=== PATIENT | female | born 1965 | race Caucasian/White ===

== ENCOUNTER 2022-03-25 16:26 | Inpatient (IN) | payer OTHER ==
[~2022-03-25] VITALS: Ht 167.6 cm; Wt 67.7 kg
[~2022-03-25 16:26] MED LIST: AMLO10 PO; ERGO50000 PO; ESCI10 PO; MARIJUANA; OMEPRAZOLE20 MG PO; ONDA4ODT MM; PRAV20 PO
[2022-03-25 17:16] LABS: BASOPHILS ABSOLUTE AUTO 0.06 K/mm3 (0.00-0.23); BASOPHILS PERCENT AUTO 1 % (0-2); EOSINOPHILS ABSOLUTE AUTO 0.09 K/mm3 (0.00-0.68); EOSINOPHILS PERCENT AUTO 1 % (0-6); Hematocrit 26.2 % (33.0-51.0); Hemoglobin 6.7 g/dL (11.5-16.0); IMMATURE GRAN ABSOLUTE AUTO 0.03 K/mm3 (0.00-0.10); IMMATURE GRAN PERCENT AUTO 0 % (0-1); LYMPHOCYTES ABSOLUTE AUTO 2.47 K/mm3 (0.84-5.20); LYMPHOCYTES PERCENT AUTO 22 % (21-46); MONOCYTES ABSOLUTE AUTO 0.73 K/mm3 (0.16-1.47); MONOCYTES PERCENT AUTO 6 % (4-13); Mean Corpuscular HGB 14.6 pg (26.0-34.0); Mean Corpuscular HGB Conc 25.6 g/dL (31.5-36.5); Mean Corpuscular Volume 57 fL (80-100); Mean Platelet Volume 9.7 fL (9.1-12.4); NEUTROPHILS PERCENT AUTO 71 % (41-73); Platelet Count 545 K/mm3 (150-400); RDW Coefficient Variation 20.5 % (11.7-14.2); RDW Standard Deviation 39.2 fL (35.1-46.3); Red Blood Cell Count 4.59 M/mm3 (3.80-5.20); White Blood Cell Count 11.48 K/mm3 (4.00-11.30)
[2022-03-25 17:45] LABS: Influenza A, PCR NEGATIVE (NEGATIVE); Influenza B, PCR NEGATIVE (NEGATIVE); Resp Syncytial Virus, PCR NEGATIVE (NEGATIVE); SARS-Cov-2 (COVID-19) PCR, MMC NEGATIVE (NEGATIVE)
[2022-03-25 17:54] LABS: Albumin, Blood 4.4 g/dL (3.4-5.0); Albumin/Globulin Ratio 1.1 (0.8-1.8); Bilirubin, Total 0.3 mg/dL (0.1-1.0); Bun/Creatinine Ratio 24.3 (12.0-20.0); Calcium, Blood 9.9 mg/dL (8.5-10.1); Creatinine, Blood 0.66 mg/dL (0.40-1.00); Globulin, Blood 4.1 g/dL (2.2-4.0); Potassium, Blood 3.7 mmol/L (3.5-5.5); Total Protein, Blood 8.5 g/dL (6.4-8.2)
[2022-03-26 00:07] LABS: IMMATURE RETIC FRACTION 35.1 % (2.3-16.0); RETICULOCYTE ABSOLUTE 0.1033 M/mm3 (0.0200-0.1100); RETICULOCYTE COUNT PERCENT 2.31 % (0.50-2.50)
[2022-03-26 00:14] LABS: Percent Saturation 2.3 % (15.0-50.0)
[2022-03-26 00:30] LABS: International Normalized Ratio 1.13; Prothrombin Time Results 11.8 Sec (9.7-11.5)
--- NOTE | 2022-03-26 02:33 | NUR ---
NEW ADMIT FROM QUALITY TECHNICIAN FIBERGLASS: NEW PT ADMIT TO ICU 5 FROM THE QUALITY TECHNICIAN FIBERGLASS. PT ARRIVED TO THE UNIT AT 2251 POST PCI; PT HAD ONE STENT PLACED IN THE PROX LAD WITH A R. RADIAL ACCESS SITE. UPON PT ARRIVAL PT HAD A 2/3 COMPLAINT OF CHEST PAIN THAT WAS RADIATING DOWN LEFT ARM, BUT PAIN HAS BEEN RESOLVING. R. RADIAL SITE ASSESSED WITH LEONIDES QUALITY TECHNICIAN FIBERGLASS RN AT BEDSIDE UPON PT ARRIVAL; SITE LOOKS GOOD WITH NO SIGNS OF BLEEDING OR FORMATION OF HEMATOMA. PT HAS C/O N/V AND SHE STATES THAT THIS IS A CHRONIC ISSUE. PT HAS BEEN VOMTING SINCE ARRIVAL AND HAS RECIEVED ZOFRAN AND COMPAZINE AND HAS HAD NO POSITIVE EFFECT AT THIS TIME. PT A&O X 4, AND APPEARS TIRED. PT ON 2 L VIA NC UPON ARRIVAL, PT NOW ON 6 L HUMIDIFIED O2 VIA NC; PT SPO2 96< AND RR 18-22. PT HAS COUGHING FITS ASSOCIATED WITH N/V EPISODES. BLOOD TINGED SPIT/VOMIT IN EMESIS BAG. PT STATES THAT SHE WEARS A CPAP AT NIGHT FOR HER SLEEP APNEA. PT HAS HYPERACTIVE BS IN ALL FOUR QUADRANTS. PT USING PUREWICK TO VOID. 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 FAMILY AT BEDSIDE AFTER PT SETTLED IN ROOM AND UPDATED ON PT STATUS AND ALL QUESTIONS ANSWERED AT THIS TIME. PT RECIEVING UNIT OF PRBC AT THIS TIME. BED LOWERED, CALL LIGHT IN REACH, WILL CONTINUE TO MONITOR CLOSELY.
[2022-03-26 04:42] LABS: PCO2 Arterial 43.5 mmHg (35-45); pH Blood Arterial 7.31 (7.35-7.45)
[2022-03-26 04:43] LABS: PO2 Arterial 43.4 mmHg (80-100)
[2022-03-26 05:05] LABS: Hematocrit 31.2 % (33.0-51.0); Hemoglobin 8.3 g/dL (11.5-16.0)
[2022-03-26 05:26] LABS: Source, Urine Foley catheter
[2022-03-26 05:40] LABS: Anion Gap 11 mmol/L (6-16); Blood Urea Nitrogen 15 mg/dL (8-24); Bun/Creatinine Ratio 25.2 (12.0-20.0); CHOL/HDL RATIO 4.4; CO2, Blood 21 mmol/L (21-32); Chloride, Blood 109 mmol/L (98-108); Cholesterol 266 mg/dL (50-200); Glomerular Filtration Rate 105 (60-); Glucose, Blood 205 mg/dL (70-99); HDL Cholesterol 60 mg/dL (>39); LDL/HDL RATIO 2.8; Low Density Lipoprotein Chol 170 mg/dL (0-110); Magnesium, Blood 2.1 mg/dL (1.6-2.4); Potassium, Blood 3.6 mmol/L (3.5-5.5); Sodium, Blood 141 mmol/L (136-145); Triglycerides 178 mg/dL (30-160); Very Low Density Lipoprot Chol 35 mg/dL (6-32)
[2022-03-26 06:04] LABS: Bilirubin, Urine Neg (Neg); Blood, Urine 3+ (Neg); Glucose Qualitative, Urine Neg (Neg); Ketones, Urine 1+ (Neg); Leukocyte Esterase, Urine Neg (Neg); Nitrite, Urine Neg (Neg); Protein, Urine 3+ (Neg); Specific Gravity, Urine 1.015 (1.003-1.022); Urobilinogen, Urine NORM (Normal)
[2022-03-26 06:20] LABS: Appearance, Urine Clear (Clear); Color, Urine Yellow (P-Yellow)
[2022-03-26 06:22] LABS: Bacteria Rare /hpf; Red Blood Cells, Urine 0-2 /hpf (0-2); Squamous Epithelial Cells Rare /hpf (Few); White Blood Cells, Urine 0-2 /hpf (0-5)
[2022-03-26 07:28] LABS: U Amphetamine Screen Not Detected; U Barbituate Screen Not Detected; U Benzodiazapine Screen Not Detected; U Buprenorphine Screen Not Detected; U Cannabinoids Screen DETECTED; U Cocaine Screen Not Detected; U Methadone Screen Not Detected; U Methamphetamine Screen Not Detected; U Opiates Screen DETECTED; U Oxycodone Screen Not Detected; U Phencyclidine Screen Not Detected; U Propoxyphene Screen Not Detected
--- NOTE | 2022-03-26 07:34 | NUR ---
PT UPDATE/SHIFT SUMMARY: PT BEGAN TO HAVE ANXIETY AND RESPIRATORY DISTRESS AROUND 0315. PT BEGAN TO HYPERVENTILATE AND PULL OFF CPAP AND HIGH FLOW NASAL CANNULA. THIS RN ATTEMPTED TO CALM PT DOWN AND CLINICAL RESEARCH ADMINISTRATOR WITH DEEP BREATHING; THESE INTERVENTIONS WERE EFFECTIVE FOR A SHORT PERIOD OF TIME BEFORE THE PT BEGAN TO BECOME INCREASINGLY ANXIOUS/AGGITATED. AT THIS TIME, THE PT'S SPO2 CONTINUOUSLY DROPPED FROM THE 80'S DOWN TO THE 70'S AND THE PT WAS STRUGGLING WITH RECOVERING O2 LEVELS. AT THIS TIME, AYALA AT BEDSIDE TO ASSESS PT AFTER CALLING PROVIDER WITH UPDATE ON PT'S URGENT STATUS. EKG OBTAINED AT THIS TIME AND ABG COLLECTED. PT O2 LEVELS CONTINUED TO DROP THE PT CONTINUED TO BE ANXIOUS/AGGITATED. SPO2 DROPPED DOWN INTO THE 60'S. RESULTS FOR PAO2 IN THE 40'S CAME BACK AND PROVIDER ORDERED FOR BEDSIDE INTUBATION. DR YOON CALLED FOR INTUBATION. PT MEDICATED WITH 20 MG ETOMIDATE GIVEN @ 0505, 80 MG ROCURONIUM GIVEN @ 0506, AND 7.5 ETT 24 CM @ TEETH PLACED AT 0506. VENT SETTINGS AC/VC 15/420/10/80%. LUNGS ARE CLEAR, SPO2 98<, RR 18-22. PT CURRENTLY HAS PROPOGOL GTT @ 30 MCG, NITRO GTT 5 MCG. HR IN THE 110'S, SBP 120-130'S. OGT PLACED AND HOOKED ON LIS. FORMAN PLACED AND DRAINING TO GRAVITY; URINE CLEAR, LIGHT YELLOW. PT IN SOFT, BILAT. WRIST RESTRAINTS. PT'S CALLED AFTER INTUBATION AND CAME IN AND UPDATED BY DR MELLO AT BEDSIDE, ALL QUESTIONS ANSWERED AT THIS TIME. BEDSIDE REPORT GIVEN TO EDNA WARNER.
--- NOTE | 2022-03-26 09:06 | NUR ---
ASSUMED CARE BEDSIDE REPORT FROM HANK WARNER AT 0700. PT INTUBATED AND SEDATED. VENT SETTINGS AC/VC 15/420/10/70%. LUNGS CLEAR, DIM IN BASES. GAG/SWALLOW REFLEX. PINK FROTHY SPUTUM FROM ETT. PROPOFOL FOR SEDATION. RESPONSIVE TO PAINFUL STIMULI. DOES NOT FOLLOW DIRECTIONS. ST ON MONITOR, NITRO STARTED AT SHIFT CHANGE, ON STANDBY AT THIS TIME. BP STABLE. MEDS GIVEN DOWN OGT, CLAMPED. ABD ROUND, SOFT, NON TENDER. BT X 4. CVC TO RIJ, DRESSING C/D/I. FORMAN PATENT, DRAINING CLEAR YELLOW URINE TO GRAVITY. RIGHT RADIAL ACCESS SITE WNL. SO AT BEDSIDE. DR PAK ROUNDED, EKG DONE, SHOWN TO MD. MEDS ADJUSTED. WILL CONTINUE TO MONITOR.
--- NOTE | 2022-03-26 17:53 | NUR ---
SHIFT SUMMARY PT REMAINS INTUBATED AND SEDATED. VENT SETTINGS AC/VC 15/420/10/50%. LUNGS CLEAR. PINK FROTHY SPUTUM FROM ETT. ST ON MONITOR, RATE 100-110'S. BP STABLE. PT GOES FROM SOMULENT TO SITTING UP IN BED, KICKING LEGS. SEDATED c VERSED GTT AND FENTANYL AND ATIVAN PRN. PROPOFOL D/C'D D/T POTENTIAL TO DECREASE CO. TUBE FEEDS STARTED VIA OGT, INFUSING AT 25 ML/HR. FORMAN PATENT, DRAINED 700 ML CLEAR YELLOW URINE TO GRAVITY. CVC TO RIJ. RIGHT RADIAL SITE WNL. WILL CONTINUE TO MONITOR UNTIL REPORT TO ONCOMING NURSE.
--- NOTE | 2022-03-26 23:07 | NUR ---
ASSUMED CARE AT 1900 PT LAYING IN BED INTUBATED WITH VENT SETTINGS AC/VC 15/420/10/40%; SMALL AMOUNT OF ETT SECREATIONS NOTED. PT REACTIVE TO PAINFUL STIMULI AND PERSONAL CARE; SHE DOES NOT FOLLOW DIRECTIONS AND QUICKLY GOES FROM SOMNULENT TO AGITATED AND PULLING AT RESTRAINTS ALONG WITH KICKING LEGS; PRN ATIVAN AND FENTANYL AVAILABLE AND HELPS WITH AGITATION; VERSED INFUSING AT 10MG/HR. AFEBRILE. HR 110-115. SBP 100-110; MAP >65. PIVOT INFUSING AT 25ML/HR WITH 30ML FLUSHES Q4HR; GOAL 40ML/HR. RT RADIAL SITE FROM PREVIOUS TR BAND SHOWS NO SIGNS OF BLEEDING OR HEMATOMA. CENTRAL LINE TO RT IJ DRESSING C/D/I. SEE SHIFT ASSESSMENT FOR FULL ASSESSMENT.
--- NOTE | 2022-03-26 23:32 | NUR ---
UPDATE PIVOT INCREASED TO 40ML/HR AT 2250. THIS IS GOAL RATE.
--- NOTE | 2022-03-27 00:17 | NUR ---
UPDATE PT BECOMES AGITATED VERY EASILY AND IS NOT REDIRECTABLE. SHE WILL OPEN HER EYES AND MAKE EYE CONTACT BUT DOES NOT FOLLOW DIRECTIONS. VERSED CONT TO INFUSE AT 10MG/HR. SEVERAL FENTANYL PUSHES GIVEN SINCE BEGINING OF SHIFT. CALL MADE TO DR YBARRA REGARDING SEDATION. NEW ORDERS PROVIDED TO START FENTANYL PUNCHBOARD FILLING MACHINE OPERATOR 25-50MCG/HR.
[2022-03-27 03:45] LABS: PCO2 Arterial 40.3 mmHg (35-45); PO2 Arterial 103 mmHg (80-100); pH Blood Arterial 7.45 (7.35-7.45)
[2022-03-27 04:31] LABS: BASOPHILS ABSOLUTE AUTO 0.06 K/mm3 (0.00-0.23); BASOPHILS PERCENT AUTO 0 % (0-2); EOSINOPHILS ABSOLUTE AUTO 0.06 K/mm3 (0.00-0.68); EOSINOPHILS PERCENT AUTO 0 % (0-6); Hematocrit 24.5 % (33.0-51.0); Hemoglobin 6.5 g/dL (11.5-16.0); IMMATURE GRAN PERCENT AUTO 1 % (0-1); LYMPHOCYTES ABSOLUTE AUTO 2.02 K/mm3 (0.84-5.20); LYMPHOCYTES PERCENT AUTO 12 % (21-46); MONOCYTES ABSOLUTE AUTO 1.35 K/mm3 (0.16-1.47); MONOCYTES PERCENT AUTO 8 % (4-13); Mean Corpuscular HGB 16.2 pg (26.0-34.0); Mean Corpuscular HGB Conc 26.5 g/dL (31.5-36.5); Mean Corpuscular Volume 61 fL (80-100); NEUTROPHILS ABSOLUTE AUTO 13.89 K/mm3 (1.96-9.15); NEUTROPHILS PERCENT AUTO 80 % (41-73); NRBC ABSOLUTE 0.03 K/mm3 (0.00-0.02); NRBC Auto 0.2 /100 WBC (0.0-0.2); Platelet Count 410 K/mm3 (150-400); RDW Coefficient Variation 23.9 % (11.7-14.2); RDW Standard Deviation 45.8 fL (35.1-46.3); Red Blood Cell Count 4.02 M/mm3 (3.80-5.20); White Blood Cell Count 17.48 K/mm3 (4.00-11.30)
[2022-03-27 04:47] LABS: Mean Platelet Volume 9.7 fL (9.1-12.4)
[2022-03-27 04:51] LABS: Albumin, Blood 3.2 g/dL (3.4-5.0); Albumin/Globulin Ratio 0.9 (0.8-1.8); Bilirubin, Total 0.6 mg/dL (0.1-1.0); Bun/Creatinine Ratio 32.4 (12.0-20.0); Calcium, Blood 8.8 mg/dL (8.5-10.1); Creatinine, Blood 0.68 mg/dL (0.40-1.00); Globulin, Blood 3.5 g/dL (2.2-4.0); Magnesium, Blood 2.4 mg/dL (1.6-2.4); Phosphorus, Blood 2.3 mg/dL (2.5-4.9); Potassium, Blood 3.2 mmol/L (3.5-5.5); Total Protein, Blood 6.7 g/dL (6.4-8.2)
--- NOTE | 2022-03-27 05:04 | NUR ---
UPDATE CALLED DR YBARRA REGARDING THIS AM LAB RESULTS OF HGB 6.5 AND POTASSIUM 3.2. NEW ORDERS PROVIDED FOR ONE PRBC TO BE INFUSED AND 40MEQ KCL IV.
--- NOTE | 2022-03-27 06:32 | NUR ---
END OF SHIFT SUMMARY PT CONT TO BE INTUBATED WITH VENT SETTINGS AC/VC 15/420/10/30%; INCREASE IN SECREATIONS AND NOW SCHREIBER IN COLOR. PT CONT TO BE EITHER VERY SOMNULENT AND NOT REACTIVE TO VERY RESTLESS, KICKING LEGS, FIGHTING VENT, AND PULLING AT RESTRAINTS; FENTANYL INFUSING AT 50MCG/HR; VERSED INFUSING AT 10MG/HR; SEVERAL FENTANYL AND ATIVAN PUSHES GIVEN TO HELP WITH VENT COMPLIENCE. AFEBRILE. HR 100-120. SBP 80-100; MAP >65. PIVOT INFUSING AT GOAL VIA OG. FORMAN IN PLACE WITH 750ML OUTPUT. RT IJ DRESSING C/D/I. RT RADIAL SITE SHOWS NO SIGNS OF BLEEDING OR HEMATOMA. ONE UNIT OF PRBC INFUSING NOW. KCL INFUSING NOW. WILL REPORT TO AM RN WHEN AVAILABLE.
--- NOTE | 2022-03-27 08:56 | NUR ---
ASSUMED CARE BEDSIDE REPORT FROM GENNARO WARNER AT 0700. PT INTUBATED AND SEDATED. VENT SETTINGS AC/VC 15/420/7/30%. LUNGS DIM, SCANT SCHREIBER SECRETIONS FROM ETT. VERSED AND FENTANYL GTT FOR SEDATION. PT SOMULENT, THEN BECOMES AGITATED, KICKING AND PULLING ON RESTRAINTS. NOT REDIRECTABLE. DOES NOT FOLLOW COMMANDS. MEDICATED c FENTANYL PRN. ST ON MONITOR, RATE 100-110'S. BP STABLE. TUBE FEEDS AT GOAL. FORMAN PATENT, DRAINING CLEAR YELLOW URINE TO GRAVITY. CVC TO RIJ, DRESSING C/D/I. RIGHT RADIAL ACCESS SITE WNL. WILL CONTINUE TO MONITOR.
--- NOTE | 2022-03-27 10:43 | NUR ---
EXTUBATION PT PLACED ON SPONT, INITIALLY 10/5/30%, THEN 7/5/30% FOR 30 MINUTES. SEDATION PUT ON STANDBY. TIDAL VOLUMES 300'S. PT KICKING LEGS, AGITATED. +COUGH/GAG. EXTUBATED AT 1025. SHALLOW RESP. FOLLOWS COMMANDS c MULIPLE REQUESTS. WEAK COUGH. PLACED ON 13L VIA HFNC. DR WRIGHT TO BEDSIDE FOR ASSESSMENT. PLACED ON BIPAP 14/7/65%. TOLERATING WELL.
--- NOTE | 2022-03-27 17:15 | NUR ---
SHIFT SUMMARY PT EXTUBATED THIS SHIFT. SEE PREVIOUS NOTE. CURRENTLY ON 2L VIA HFNC. LUNGS CLEAR. PT'S MENTATION IMPROVING. FOLLOWS SIMPLE COMMANDS. ORIENTED TO PERSON, PLACE. MOOD LABILE. TEARFUL. TWO PERSON ASSIST TO BSC. VOIDED 250 ML POST FORMAN REMOVAL. BP STABLE. HR 100'S, SR. CVC TO RIJ. WILL CONTINUE TO MONITOR UNTIL REPORT TO ONCOMING NURSE.
--- NOTE | 2022-03-27 19:52 | NUR ---
ASSUMED CARE AT 1845 -- PATIENT HAS BEEN AGITATED AND ANXIOUS, TRYING TO ATTEMPT BED EXIT SEVERAL TIMES. SHE TRIED TO USE BEDPAN UNSUCCESSFULY; THEN ASSISTED TO COMMODE WITH SEVERAL COLLEAGUES AND UNABLE TO VOID. AUTHOR ATTEMPTED TO SET EXPECTATIONS FOR THE NIGHT, REORIENTING HER TO CALL LIGHT, AND AGAIN INSTRUCTING HER NOT TO LEAVE HER BED WITHOUT ASSISTANCE. SHE DID NOT DEMONSTRATE ADEQUATE STRENGTH WHEN IT COMES TO WEIGHT-BEARING AND WAS A 2-ASSIST.
--- NOTE | 2022-03-28 01:06 | NUR ---
PATIENT'S PIV IN L AC WENT BAD AND INFILTRATED. AUTHOR ATTEMPTED PLACING ONE IV BUT VEIN BLEW. PATIENT THEN REQUESTS XYLOCAINE, BUT PATIENT HAS EXISTING IJ CENTRAL LINE, NO PIV NECESSARY AT THIS TIME.
[2022-03-28 01:34] LABS: Source, Urine Foley catheter
[2022-03-28 01:35] LABS: Bilirubin, Urine Neg (Neg); Blood, Urine 5+ (Neg); Glucose Qualitative, Urine Neg (Neg); Ketones, Urine Neg (Neg); Leukocyte Esterase, Urine 1+ (Neg); Nitrite, Urine Neg (Neg); Protein, Urine 2+ (Neg); Urobilinogen, Urine 1+ (Normal)
[2022-03-28 01:41] LABS: Appearance, Urine Hazy (Clear); Color, Urine Yellow (P-Yellow); White Blood Cells, Urine 0-2 /hpf (0-5)
[2022-03-28 01:42] LABS: Bacteria Not Seen /hpf; Red Blood Cells, Urine TNTC /hpf (0-2); Squamous Epithelial Cells Not Seen /hpf (Few)
--- NOTE | 2022-03-28 01:57 | NUR ---
PATIENT CONTINUES TO C/O FEELINGS OF URINARY URGENCY AND HAS BEEN REQUESTING TO USE COMMODE Q15MIN. AUTHOR FIRST TRIED SETTING REASONABLE EXPECTATIONS, I.E. GETTING UP HOURLY, AUTHOR HAS ANOTHER PATIENT TO CARE FOR. PATIENT IS A 2-PERSON ASSIST AND BARELY CAN SUPPORT OWN WEIGHT. PATIENT UNABLE TO CLUSTER REQUESTS. FORMAN PLACED WITH URINE RETURN OF APPROX 20-30ML. PATIENT CONTINUES TO REPORT FEELING OF NEEDING TO VOID. AUTHOR EXPLAINED LIKELY NOW DUE TO IRRITATION IN URETHRA FROM FORMAN INSERTION. HOWEVER, TO BE THOROUGH, AUTHOR BLADDER SCANNED PATIENT. MAXIMUM AMOUNT SCANNED 15ML DESPITE MULTIPLE VIEWS, ANGLES. PATIENT SATISFIED.
--- NOTE | 2022-03-28 03:36 | NUR ---
AUTHOR PLACED CALL TO DR. YBARRA RE: PATIENT RESTLESSNESS, ANXIETY, FEELINGS OF POLUURIA AND RETENTION ALONG WITH LOW BACK PAIN. INFORMED MD THAT URINE SENT TO LAB CONTAINED LEUKOCYTE ESTERASE AND ALSO THAT AUTHOR HAD BLADDER SCANNED WITH MINIMAL AMOUNTS SEEN. ADDITIONALLY UPDATED MD THAT WHILE PT UP TO COMMODE FREQUENTLY (PRIOR TO FORMAN INSERTION), SHE IS NOT OUTPUTTING MUCH. SINCE PLACING CATH, ONLY ABOUT 50ML OUT. PER MD, OK TO ORDER 1MG DILAUDID ONE-TIME DOSE, ALONG WITH CHANGING PRN 25-50 MCG FENTANYL FREQUENCY TO Q30MIN. IN ADDITION, VERBAL ORDER FOR NS AT 75ML/HR FOR A TOTAL OF 500ML. MD AWARE OF HX FLASH PULMONARY EDEMA.
[2022-03-28 03:38] LABS: Bun/Creatinine Ratio 30.8 (12.0-20.0); Calcium, Blood 9.1 mg/dL (8.5-10.1); Creatinine, Blood 0.58 mg/dL (0.40-1.00); Potassium, Blood 3.2 mmol/L (3.5-5.5)
--- NOTE | 2022-03-28 04:20 | NUR ---
CALL TO DR YBARRA REGARDING PT CONFUSED. TYRING TO CLIMB OUT OF BED. PULLING ON LINES AND UNABLE TO REORIENT. PT PLACED IN VEST AND SOFT WRIST RESTRAINTS. MED WITH FENTANYL, DILAUDID AND ATIVAN WITHOUT EFFECT. ORDER OBTAINED FOR ZYPREXA IM ONE TIME
--- NOTE | 2022-03-28 04:51 | NUR ---
PLEASE SEE PREVIOUS NOTE FROM CHARGE NURSE. DUE TO PATIENT'S DISORIENTATION AND FREQUENT ATTEMPTS AT EXITING BED, ALONG WITH INEFFECTIVENESS OF PRN MEDICATIONS FOR AGITATION/SEDATION, PATIENT WAS PLACED INTO A FORTUNATO VEST AND SOFT WRIST RESTRAINTS. PATIENT STILL ATTEMPTING TO WRIGGLE OUT OF RESTRAINTS AND ACTIVELY A DANGER TO HERSELF DUE TO MENTAL STATUS. MD CALLED AND ONE-TIME ORDER PLACED FOR ZYPREXA. THIS WAS ADMINISTERED WITH GOOD EFFECT; PATIENT IS CALMER AND INTERMITTENTLY SLEEPING. IVF RESTARTED ONCE ABLE.
--- NOTE | 2022-03-28 05:41 | NUR ---
UPDATE: ZYPREXA NOT EFFECTIVE FOR LONG. PT CONTINUING BEHAVIORS NOTED PREVIOUSLY ALONG WITH BEING INCONSOLABLE AND RAMPING HERSELF UP. HR UP TO 140S AND BP INCREASING WELL. CALL PLACED TO DR. WRIGHT. AUTHOR UPDATED MD ON EVENTS OVERNIGHT. ORDER PLACED FOR PRECEDEX.
--- NOTE | 2022-03-28 06:43 | NUR ---
SHIFT SUMMARY: PLEASE SEE MULTIPLE NOTES THIS SHIFT BY THIS AUTHOR FOR FULL DETAILS NEURO: SEDATED WITH PRECEDEX. PATIENT IS CALMER AND APPEARS TO BE ASLEEP. CARDS: ST MOSTLY. ONCE PRECEDEX ONBOARD, HR 80S-90S, BP WDL. RESP: NOW ON BIPAP 10/; FIO2 30%. LUNGS CLEAR/DIMINISHED. GI/: FORMAN RE-ESTABLISHED. VERY LOW UOP. NO BM. SEE PREVIOUS NOTES. MSK: CANNOT BEAR OWN WEIGHT. 2-ASSIST IF TRANSFERRING. FULL ROM IN ALL EXTREMITIES (NOW IN RESTRAINTS). INTEG: NO SKIN CONCERNS. DRIPS: PRECEDEX AT 1.0 MCG/KG/HR NS AT 75ML/HR FOR A TOTAL OF 500ML.
--- NOTE | 2022-03-28 08:16 | NUR ---
ASSUMED CARE REPORT FROM JOHANA WARNER AT 0700. PT RESTING IN BED. APPEARS TO BE SLEEPING. PRECEDEX GTT INFUSING. TITRATED TO 0.7 MCG/KG/HR, PT WOKE, TOOK PO MEDS. PT ANXIOUS, PULLING ON RESTRAINTS, NOT COOPERATIVE OR REDIRECTABLE. INCREASED HR. PRECEDEX INCREASED. LUNGS CLEAR. REMOVED BIPAP AT SHIFT CHANGE. ON RA. SR ON MONITOR, RATE VARIES FROM 80-120 BASED ON AGITATION. BP STABLE. FORMAN PATENT, DRAINING TO GRAVITY. WILL CONTINUE TO MONITOR.
[2022-03-28 08:18] LABS: BASOPHILS ABSOLUTE AUTO 0.06 K/mm3 (0.00-0.23); BASOPHILS PERCENT AUTO 0 % (0-2); EOSINOPHILS ABSOLUTE AUTO 0.21 K/mm3 (0.00-0.68); EOSINOPHILS PERCENT AUTO 1 % (0-6); Hematocrit 28.2 % (33.0-51.0); Hemoglobin 7.7 g/dL (11.5-16.0); IMMATURE GRAN ABSOLUTE AUTO 0.12 K/mm3 (0.00-0.10); IMMATURE GRAN PERCENT AUTO 1 % (0-1); LYMPHOCYTES ABSOLUTE AUTO 2.47 K/mm3 (0.84-5.20); LYMPHOCYTES PERCENT AUTO 13 % (21-46); MONOCYTES ABSOLUTE AUTO 1.58 K/mm3 (0.16-1.47); MONOCYTES PERCENT AUTO 8 % (4-13); Mean Corpuscular HGB 17.2 pg (26.0-34.0); Mean Corpuscular HGB Conc 27.3 g/dL (31.5-36.5); Mean Corpuscular Volume 63 fL (80-100); Mean Platelet Volume 9.7 fL (9.1-12.4); NEUTROPHILS ABSOLUTE AUTO 15.24 K/mm3 (1.96-9.15); NEUTROPHILS PERCENT AUTO 77 % (41-73); NRBC ABSOLUTE 0.02 K/mm3 (0.00-0.02); NRBC Auto 0.1 /100 WBC (0.0-0.2); Platelet Count 389 K/mm3 (150-400); RDW Coefficient Variation 26.8 % (11.7-14.2); RDW Standard Deviation 54.3 fL (35.1-46.3); Red Blood Cell Count 4.47 M/mm3 (3.80-5.20); White Blood Cell Count 19.68 K/mm3 (4.00-11.30)
--- NOTE | 2022-03-28 17:41 | NUR ---
SHIFT SUMMARY PT SEDATED ON PRECEDEX. ROUSES c VERBAL STIMULI, RETURNS TO SLEEP WHEN UNDISTURBED. TITRATING PRECEDEX DOWN. LAIRD. LUNGS CLEAR. ON RA. WRIST RESTRAINTS REMOVED, VEST IN PLACE D/T SEDATING MEDICATIONS AND IMPULSIVITY. SR, RATE 80'S. BP STABLE. FORMAN PATENT, DRAINED 350 ALVARO URINE TO GRAVITY. CVC TO RIJ, DRESSING C/D/I. FAMILY UPDATED. WILL CONTINUE TO MONITOR.
--- NOTE | 2022-03-28 21:55 | NUR ---
ASSUMED CARE AT 1900 PT LAYING IN BED DURING SHIFT CHANGE. SHE IS VERY EMOTIONAL AND WANT TO "GET UP AND WALK AROUND", THIS RN AND PT DISCUSSED THE SAFETY ASPECT OF THIS REQUEST AND SHE SAID SHE "FELT LIKE HER LIBERTY'S WERE BEING TAKEN AWAY FROM HER". PT ENDED UP DIALYING HER PHONE NUMBER FROM [facility] AND TALKED TO HIM. AFTERWARD HE CALLED THE UNIT AND SPOKE WITH THIS RN, HE TOO REITERATED THAT THE PT SHOULD TAKE IT SLOW. THE PT STATED THAT SHE WAS MAD AT HER AND WAS GOING TO "DIVORSE HIM AND YOU GUYS". SHE IS A/O X4 AND ABLE TO USE THE CALL LIGHT; SHE IS VERY WEAK BUT ABLE TO BRUSH HER OWN TEETH, AFTERWARDS WAS ASKED IF SHE WANTED TO BRUSH HER HAIR WHEN SHE STATED THAT HER "ARMS WERE TOO WEAK". SHE MOVES SLOWLY AND ANSWERS SLOWLY; PRECEDEX INFUSING AT 0.3MCG/KG/HR. SPO2 >93% ON RA; SHE IS ABLE TO COUGH UP MUCUS PLUGS. HR 90'S, SBP 120'S. HYPOACTIVE BT; TOLERATING PO FLUIDS WELL. FORMAN IN PLACE AND DRAINING TO GRAVITY. CENTRAL LINE TO RT IJ DRESSING C/D/I. SEE SHIFT ASSESSMENT FOR FULL ASSESSMENT.
[2022-03-29 05:13] LABS: Bun/Creatinine Ratio 21.5 (12.0-20.0); Calcium, Blood 9.3 mg/dL (8.5-10.1); Creatinine, Blood 0.65 mg/dL (0.40-1.00); Magnesium, Blood 1.8 mg/dL (1.6-2.4); Potassium, Blood 3.2 mmol/L (3.5-5.5)
--- NOTE | 2022-03-29 05:56 | NUR ---
UPDATE CALLED DR CUMMINGS REGARDING AM POTASSIUM LAB OF 3.2. NEW ORDERS PROVIDED FOR 40MEQ OF KCL PO.
--- NOTE | 2022-03-29 06:01 | NUR ---
END OF SHIFT SUMMARY NO ACUTE EVENTS OVERNIGHT. PT MENTATION AND ATTITUDE HAVE IMPROVED. SHE IS CALM, COOPERATIVE, AND UNDERSTANDING OF HER LIMITATIONS. SHE IS OUT OF RESTRAINTS OF 0000 AND PRECEDEX HAS BEEN ON SB SINCE 439. A/O X4 AND USING CALL LIGHT APPROPRIATLY. SPO2 >93% ON RA; STRONG COUGH AND CLEARING SECREATIONS. AFEBRILE. HR 90'S. SBP 90-120. PT TOLERATING PO INTAKE WELL. FORMAN IN PLACE WITH 700ML URINE OUTPUT. RT IJ DRESSING C/D/I. WILL REPORT TO AM RN WHEN AVAILABLE.
[2022-03-29 06:08] LABS: BASOPHILS ABSOLUTE AUTO 0.05 K/mm3 (0.00-0.23); BASOPHILS PERCENT AUTO 0 % (0-2); EOSINOPHILS ABSOLUTE AUTO 0.13 K/mm3 (0.00-0.68); EOSINOPHILS PERCENT AUTO 1 % (0-6); Hematocrit 27.7 % (33.0-51.0); Hemoglobin 7.4 g/dL (11.5-16.0); IMMATURE GRAN ABSOLUTE AUTO 0.09 K/mm3 (0.00-0.10); IMMATURE GRAN PERCENT AUTO 1 % (0-1); LYMPHOCYTES ABSOLUTE AUTO 2.38 K/mm3 (0.84-5.20); LYMPHOCYTES PERCENT AUTO 18 % (21-46); MONOCYTES ABSOLUTE AUTO 1.28 K/mm3 (0.16-1.47); MONOCYTES PERCENT AUTO 10 % (4-13); Mean Corpuscular HGB 16.9 pg (26.0-34.0); Mean Corpuscular HGB Conc 26.7 g/dL (31.5-36.5); Mean Corpuscular Volume 63 fL (80-100); NEUTROPHILS ABSOLUTE AUTO 9.21 K/mm3 (1.96-9.15); NEUTROPHILS PERCENT AUTO 70 % (41-73); NRBC ABSOLUTE 0.02 K/mm3 (0.00-0.02); NRBC Auto 0.2 /100 WBC (0.0-0.2); RDW Coefficient Variation 28.1 % (11.7-14.2); RDW Standard Deviation 58.3 fL (35.1-46.3); Red Blood Cell Count 4.38 M/mm3 (3.80-5.20); White Blood Cell Count 13.14 K/mm3 (4.00-11.30)
[2022-03-29 06:44] LABS: Platelet Count 345 K/mm3 (150-400)
--- NOTE | 2022-03-29 07:10 | NUR ---
Remote Monitoring called. Pt confirmed to be on camera.
--- NOTE | 2022-03-29 08:56 | NUR ---
Care Assumed 0700 A/O x 4. Able to state correct location, time/event, and following directions. Calm/Coopertive. Able to move in bed without assistance. LS clear, on RA. BT active. Sinus tach. Quintana draining clear/guzman urine. VSS. Call light within reach. Dr. Carrion in to see patient this morning. Pt to have ECHO completed and quintana cath can be removed per provider.
--- NOTE | 2022-03-29 11:51 | NUR ---
Dr. Arias visit - PCU status Provider orders recieved to change patient status to PCU. Pt up in room to bedside toilet with minimal assistance. Tolerated well. NSR, HR 110's. On RA. Provider in the room during this. Castro removed, pt tolerated well. Remains A/O X 4. Calm/coopertive. Per provider remote monitor may be removed as well.
--- NOTE | 2022-03-29 12:04 | NUR ---
Echocardiogram completed.
--- NOTE | 2022-03-29 16:16 | NUR ---
Update- Pt attempted to have BM in bedside toilet without success. "Lots of gas" per patient. Up in room with minimal assistance. VSS. Remains A/O X4, calm/coopertive. Daughter visited and updated on care being provided.
--- NOTE | 2022-03-29 18:36 | NUR ---
Shift Summary A/O X 4. Pt able to ambulate to bathroom with minimal assistance. VSS. On RA. Calm/Coopertive. Family at bedside t/o the shift. Updated on care. No BM T/O shift. Patient attempted twice. Will report to nightshift nurse.
--- NOTE | 2022-03-29 21:20 | NUR ---
ASSUMED CARE. AOX3, PLEASANT AND COOPERATIVE. DENIES ANY NEEDS OR WANTS. NO PAIN AT THIS TIME. HR SINUS WITH RATE IN THE 90'S. NO CHEST PAIN. LS CLEAR, ON RA WITH SATS >90%. DOES WHERE BIPAP AT NIGHT. STILL NO BM, BT ACTIVE. VS WNL. MEDS GIVEN. CALL LIGHT IS IN REACH. WILL CONTINUE TO MONITOR.
[2022-03-30 04:34] LABS: BASOPHILS ABSOLUTE AUTO 0.06 K/mm3 (0.00-0.23); BASOPHILS PERCENT AUTO 1 % (0-2); EOSINOPHILS ABSOLUTE AUTO 0.23 K/mm3 (0.00-0.68); EOSINOPHILS PERCENT AUTO 2 % (0-6); Hematocrit 30.2 % (33.0-51.0); Hemoglobin 8.4 g/dL (11.5-16.0); IMMATURE GRAN ABSOLUTE AUTO 0.07 K/mm3 (0.00-0.10); IMMATURE GRAN PERCENT AUTO 1 % (0-1); LYMPHOCYTES ABSOLUTE AUTO 1.89 K/mm3 (0.84-5.20); LYMPHOCYTES PERCENT AUTO 15 % (21-46); MONOCYTES ABSOLUTE AUTO 1.41 K/mm3 (0.16-1.47); MONOCYTES PERCENT AUTO 11 % (4-13); Mean Corpuscular HGB 17.6 pg (26.0-34.0); Mean Corpuscular HGB Conc 27.8 g/dL (31.5-36.5); Mean Corpuscular Volume 63 fL (80-100); NEUTROPHILS ABSOLUTE AUTO 8.71 K/mm3 (1.96-9.15); NEUTROPHILS PERCENT AUTO 70 % (41-73); Platelet Count 382 K/mm3 (150-400); RDW Coefficient Variation 29.6 % (11.7-14.2); Red Blood Cell Count 4.77 M/mm3 (3.80-5.20); White Blood Cell Count 12.37 K/mm3 (4.00-11.30)
[2022-03-30 04:52] LABS: Calcium, Blood 9.8 mg/dL (8.5-10.1); Creatinine, Blood 0.64 mg/dL (0.40-1.00); Potassium, Blood 3.6 mmol/L (3.5-5.5)
--- NOTE | 2022-03-30 05:37 | NUR ---
SHIFT SUMMARY: AOX3, INDEPENDENT IN THE ROOM. NO CHEST PAIN OR OTHER CARDIAC SYMPTOMS THIS SHIFT. VSS. RA EXCEPT CPAP AT NIGHT. SATS REMAINED ABOVE 90%. ABLE TO USE CALL LIGHT APPROPRIATLY. REMAINED SINUS WITH RATE IN THE 98'S EXCEPT FOR WHEN SHE GETS UP TO COMMODE THEN HR TENDS TO INCREASE TO 110'S THEN IMMEDIATLY RETURNS TO NORMAL AT REST. NO OTHER CHANGES TO NOTE, READY FOR DISCHARGE.
--- NOTE | 2022-03-30 07:41 | NUR ---
DR STONE IN THIS AM, OKAY FOR PT TO BE DISCHARGED HOME FROM A CARDIAC STANDPOINT. PT WILL NEED TO HAVE RIGHT IJ DC'D, PT IS NOT RECEIVING ANY IV MEDS/FLUIDS.
--- NOTE | 2022-03-30 08:00 | NUR ---
CARE OF PT ASSUMED AT 0700. PT SITTING UP IN BED WIDE AWAKE, DENIES C/O CHEST PAIN, PRESSURE, SOB. C/O MILD PAIN TO RIGHT HAND/WRIST POSSIBLY D/T RESTRAINT WHILE INTUBATED.
[2022-03-30] MEDS ORDERED: ASPI81CH PO (12:48)
[2022-03-30] MEDS ORDERED: CARV6.25 PO (12:48)
[2022-03-30] MEDS ORDERED: ATOR80 PO (12:48)
[2022-03-30] MEDS ORDERED: FERSU300 PO (12:49)
[2022-03-30] MEDS ORDERED: IRBE75 PO (12:49)
[2022-03-30] MEDS ORDERED: FURO20 PO (12:49)
[2022-03-30] MEDS ORDERED: TICA90TA PO (12:50)
[2022-03-30] MEDS ORDERED: CLOP75 PO (12:51)
[2022-03-30] MEDS ORDERED: ASCO500 PO (12:53)
[2022-03-30] MEDS ORDERED: Colace100 MG PO (12:53)
[2022-03-30] MEDS ORDERED: PANT40 PO (12:54)
--- NOTE | 2022-03-30 13:41 | NUR ---
PT DC'D HOME IN STABLE CONDITION AT [address] CARE OF FAMILY[address] STNOE BROUGHT IN BRILLINTA SAMPLES FOR PT, 20 DAY SAMPLE. PT INSTRUCTED TO FINISH BRILLINTA THEN START PLAVIX, THIS WAS PER DR STONE. [facility] AND CONFIRMED THAT [facility] WOULD FILL NEW RX'S. PT TO MAKE FOLLOW APPOINT W PIN CHASER AND PCP. PT TO SPEAK W PCP ABOUT GI CONSULT FOR IRON DEF. ANEMIA. VS TAKEN PRIOR TO DC AND WERE STABLE. PT EDUCATED TO TAKE VITALS BEFORE COREG, PARAMETERS GIVEN. STENT CARD GIVEN TO SEVERAL DAYS AGO. RIGHT RADIAL ART SITE WNL. RIGHT IJ SITE ANKITG C/D/I, EDUCATION GIVEN.
== END 2022-03-30 13:40 | disposition home or self-care (01) | DRG 270 ==
LOC: ER 16:26 → ICUE 21:38 → ICUW 21:38 → ICUE 21:38
PROVIDERS: Internal Medicine; Internal Medicine Critical Care Medicine; Physician Assistant; Student in an Organized Health Care Education/Training Program; ADMIT Internal Medicine Cardiovascular Disease
PROC: 027034Z Dilation of Coronary Artery, One Artery with Drug-eluting Intraluminal Device, Percutaneous Approach (ICD-10-PCS; principal; 2022-03-25)
PROC: X2CY3T7 Extirpation of Matter from Great Vessel using Computer-aided Mechanical Aspiration, Percutaneous Approach, New Technology Group 7 (ICD-10-PCS; 2022-03-25)
PROC: 4A023N7 Measurement of Cardiac Sampling and Pressure, Left Heart, Percutaneous Approach (ICD-10-PCS; 2022-03-25)
PROC: B211YZZ Fluoroscopy of Multiple Coronary Arteries using Other Contrast (ICD-10-PCS; 2022-03-25)
PROC: B215YZZ Fluoroscopy of Left Heart using Other Contrast (ICD-10-PCS; 2022-03-25)
PROC: 30233N1 Transfusion of Nonautologous Red Blood Cells into Peripheral Vein, Percutaneous Approach (ICD-10-PCS; 2022-03-25)
PROC: 02HV33Z Insertion of Infusion Device into Superior Vena Cava, Percutaneous Approach (ICD-10-PCS; 2022-03-26)
PROC: B548ZZA Ultrasonography of Superior Vena Cava, Guidance (ICD-10-PCS; 2022-03-26)
PROC: 5A1935Z Respiratory Ventilation, Less than 24 Consecutive Hours (ICD-10-PCS; 2022-03-26)
PROC: 0BH17EZ Insertion of Endotracheal Airway into Trachea, Via Natural or Artificial Opening (ICD-10-PCS; 2022-03-26)
PROC: 5A09357 Assistance with Respiratory Ventilation, Less than 24 Consecutive Hours, Continuous Positive Airway Pressure (ICD-10-PCS; 2022-03-28)
DX: I21.3 ST elevation (STEMI) myocardial infarction of unspecified site (principal); G92.8 Other toxic encephalopathy; I50.21 Acute systolic (congestive) heart failure; J96.01 Acute respiratory failure with hypoxia; D62 Acute posthemorrhagic anemia; F50.00 Anorexia nervosa, unspecified; J95.851 Ventilator associated pneumonia; I51.81 Takotsubo syndrome; I25.5 Ischemic cardiomyopathy; I11.0 Hypertensive heart disease with heart failure; E78.5 Hyperlipidemia, unspecified; D50.9 Iron deficiency anemia, unspecified; E87.6 Hypokalemia; E83.39 Other disorders of phosphorus metabolism; F43.12 Post-traumatic stress disorder, chronic; R73.9 Hyperglycemia, unspecified; F17.210 Nicotine dependence, cigarettes, uncomplicated; R45.1 Restlessness and agitation; G47.33 Obstructive sleep apnea (adult) (pediatric); I67.9 Cerebrovascular disease, unspecified; I95.9 Hypotension, unspecified; I25.10 Atherosclerotic heart disease of native coronary artery without angina pectoris; F29 Unspecified psychosis not due to a substance or known physiological condition; F32.A Depression, unspecified; K21.9 Gastro-esophageal reflux disease without esophagitis; Z20.822 Contact with and (suspected) exposure to COVID-19; Z68.24 Body mass index [BMI] 24.0-24.9, adult; Z79.01 Long term (current) use of anticoagulants; Z79.4 Long term (current) use of insulin; Z99.81 Dependence on supplemental oxygen; Z86.73 Personal history of transient ischemic attack (TIA), and cerebral infarction without residual deficits; Z88.8 Allergy status to other drugs, medicaments and biological substances; Z79.899 Other long term (current) drug therapy
CPT/HCPCS: 0241U; 31500; 36415; 36430; 36556; 36600; 51702; 71045; 71260; 80048; 80053; 80061; 81001; 82330; 82728; 82803; 82947; 83036; 83540; 83550; 83690; 83735; 83880; 84100; 84484; 85014; 85018; 85025; 85045; 85347; 85610; 85730; 86850; 86900; 86901; 86920; 93005; 93010; 93308; 93321; 93458; 94002; 94003; 94660; 94762; 96374-59; 96375-59; 99152; 99153; 99291-25; A9270; C1725; C1751; C1757; C1769; C1874; C1887; C1894; C8929; C9113; C9606; J0780; J1170; J1265; J1644; J1815; J1940; J2060; J2250; J2270; J2370; J2405; J2550; J2704; J3010; J3475; J3480; J7030; J7040; J7050; J7060; P9016; Q9957; Q9967

== ENCOUNTER 2022-06-03 10:02 | Day surgery (SDC) | payer OTHER ==
[~2022-06-03] VITALS: Ht 167.6 cm; Wt 68.2 kg
[~2022-06-03 10:02] MED LIST changes: +ASCO500 PO; +ASPI81CH PO; +ATOR80 PO; +CARV6.25 PO; +CLOP75 PO; +Colace100 MG PO; +FERSU300 PO; +FURO20 PO; +IRBE75 PO; +PANT40 PO; +TICA90TA PO
--- NOTE | 2022-06-03 11:01 | NUR ---
DR MOSELEY AT BEDSIDE SPEAKING WITH PT PRIOR TO PROCEDURE
--- NOTE | 2022-06-03 11:26 | NUR ---
PT GIVEN VERBAL DC INSTRUCTIONS AND FOLLOW UP INFORMATION BY DR MOSELEY. WILL NOT GET SITE WET FOR 7 DAYS, AND WILL TAKE DRESSING OFF ON 7TH DAY POST EXPLANT. PT DENIES ANY PAIN OR DISCOMFORT AT SITE. TEGADERM AND TELFA DRESSING CLEAN AND DRY, NO BLEEDING OR SWELLING AT SITE AT TIME OF DISCHARGE. PT AMBULATED OUT OF THE DEPARTMENT WITHOUT DIFFICULTY, ACCOMPANIED BY .
[2022-06-03] MEDS ORDERED: NITR.4SL SL (11:31)
[2022-06-03] MEDS ORDERED: TRAZ150T57 PO (11:31)
== END 2022-06-03 22:55 | disposition home or self-care (01) ==
LOC: MHTC 10:02
DX: Z45.09 Encounter for adjustment and management of other cardiac device (principal); I25.10 Atherosclerotic heart disease of native coronary artery without angina pectoris; E78.5 Hyperlipidemia, unspecified; I10 Essential (primary) hypertension; G47.33 Obstructive sleep apnea (adult) (pediatric); Z86.73 Personal history of transient ischemic attack (TIA), and cerebral infarction without residual deficits; Z79.82 Long term (current) use of aspirin; Z79.02 Long term (current) use of antithrombotics/antiplatelets
CPT/HCPCS: 33286

== ENCOUNTER 2022-08-04 13:08 | Emergency (ER) | payer OTHER ==
[~2022-08-04] VITALS: Ht 167.6 cm; Wt 65.8 kg
[~2022-08-04 13:08] MED LIST changes: +NITR.4SL SL; +TRAZ150T57 PO
[2022-08-04 14:19] LABS: Albumin, Blood 4.6 g/dL (3.4-5.0); Albumin/Globulin Ratio 1.1 (0.8-1.8); Bilirubin, Total 0.7 mg/dL (0.1-1.0); Bun/Creatinine Ratio 49.6 (12.0-20.0); Calcium, Blood 10.4 mg/dL (8.5-10.1); Creatinine, Blood 0.52 mg/dL (0.40-1.00); Globulin, Blood 4.2 g/dL (2.2-4.0); Magnesium, Blood 2.8 mg/dL (1.6-2.4); Potassium, Blood 4.8 mmol/L (3.5-5.5); Total Protein, Blood 8.8 g/dL (6.4-8.2)
[2022-08-04] MEDS ORDERED: OMEP20ER PO (14:54)
[2022-08-04 15:12] LABS: BASOPHILS ABSOLUTE AUTO 0.03 K/mm3 (0.00-0.23); BASOPHILS PERCENT AUTO 0 % (0-2); EOSINOPHILS PERCENT AUTO 0 % (0-6); Hematocrit 41.7 % (33.0-51.0); Hemoglobin 14.3 g/dL (11.5-16.0); IMMATURE GRAN ABSOLUTE AUTO 0.09 K/mm3 (0.00-0.10); IMMATURE GRAN PERCENT AUTO 0 % (0-1); LYMPHOCYTES ABSOLUTE AUTO 2.66 K/mm3 (0.84-5.20); LYMPHOCYTES PERCENT AUTO 13 % (21-46); MONOCYTES PERCENT AUTO 10 % (4-13); Mean Corpuscular HGB Conc 34.3 g/dL (31.5-36.5); Mean Corpuscular Volume 91 fL (80-100); NEUTROPHILS ABSOLUTE AUTO 15.27 K/mm3 (1.96-9.15); NEUTROPHILS PERCENT AUTO 76 % (41-73); Platelet Count 340 K/mm3 (150-400); RDW Coefficient Variation 14.6 % (11.7-14.2); RDW Standard Deviation 48.4 fL (35.1-46.3); Red Blood Cell Count 4.61 M/mm3 (3.80-5.20); White Blood Cell Count 20.05 K/mm3 (4.00-11.30)
[2022-08-04] MEDS ORDERED: PHENERGAN25 MG PR (17:45)
[2022-08-04] MEDS ORDERED: PROM25 PO (17:45)
[2022-08-04] MEDS ORDERED: FAMO20 PO (17:45)
== END 2022-08-04 18:02 | disposition home or self-care (01) ==
LOC: ER 13:08
PROVIDERS: Physician Assistant
DX: R10.9 Unspecified abdominal pain (principal); I25.2 Old myocardial infarction; I10 Essential (primary) hypertension; K21.9 Gastro-esophageal reflux disease without esophagitis; I25.10 Atherosclerotic heart disease of native coronary artery without angina pectoris; G47.30 Sleep apnea, unspecified; Z86.73 Personal history of transient ischemic attack (TIA), and cerebral infarction without residual deficits; Z88.8 Allergy status to other drugs, medicaments and biological substances; Z79.899 Other long term (current) drug therapy; Z79.02 Long term (current) use of antithrombotics/antiplatelets; Z79.82 Long term (current) use of aspirin; Z87.891 Personal history of nicotine dependence
CPT/HCPCS: 36415; 71046; 80053; 83690; 83735; 83880; 84484; 85025; 93005; 93010; J1170; J1200; J1790; J2405

== ENCOUNTER 2022-08-26 13:25 | Emergency (ER) | payer OTHER ==
[~2022-08-26] VITALS: Ht 167.6 cm; Wt 56.7 kg
[~2022-08-26 13:25] MED LIST changes: +FAMO20 PO; +OMEP20ER PO; +PHENERGAN25 MG PR; +PROM25 PO
[2022-08-26 14:56] LABS: BASOPHILS ABSOLUTE AUTO 0.06 K/mm3 (0.00-0.23); BASOPHILS PERCENT AUTO 1 % (0-2); EOSINOPHILS ABSOLUTE AUTO 0.11 K/mm3 (0.00-0.68); EOSINOPHILS PERCENT AUTO 1 % (0-6); Hematocrit 37.3 % (33.0-51.0); Hemoglobin 12.6 g/dL (11.5-16.0); IMMATURE GRAN PERCENT AUTO 1 % (0-1); LYMPHOCYTES ABSOLUTE AUTO 2.49 K/mm3 (0.84-5.20); LYMPHOCYTES PERCENT AUTO 31 % (21-46); MONOCYTES ABSOLUTE AUTO 0.74 K/mm3 (0.16-1.47); MONOCYTES PERCENT AUTO 9 % (4-13); Mean Corpuscular HGB 30.9 pg (26.0-34.0); Mean Corpuscular HGB Conc 33.8 g/dL (31.5-36.5); Mean Corpuscular Volume 91 fL (80-100); Mean Platelet Volume 11.4 fL (9.1-12.4); NEUTROPHILS ABSOLUTE AUTO 4.43 K/mm3 (1.96-9.15); NEUTROPHILS PERCENT AUTO 56 % (41-73); Platelet Count 193 K/mm3 (150-400); RDW Coefficient Variation 12.9 % (11.7-14.2); Red Blood Cell Count 4.08 M/mm3 (3.80-5.20); White Blood Cell Count 7.93 K/mm3 (4.00-11.30)
[2022-08-26 14:57] LABS: Albumin, Blood 3.8 g/dL (3.4-5.0); Albumin/Globulin Ratio 1.2 (0.8-1.8); Bilirubin, Total 0.3 mg/dL (0.1-1.0); Bun/Creatinine Ratio 22.8 (12.0-20.0); Calcium, Blood 9.4 mg/dL (8.5-10.1); Creatinine, Blood 0.62 mg/dL (0.40-1.00); Globulin, Blood 3.3 g/dL (2.2-4.0); Potassium, Blood 3.5 mmol/L (3.5-5.5); Total Protein, Blood 7.1 g/dL (6.4-8.2)
[2022-08-26 18:00] LABS: Source, Urine Clean Catch
[2022-08-26 18:13] LABS: Appearance, Urine Hazy (Clear); Bilirubin, Urine Neg (Neg); Blood, Urine 2+ (Neg); Color, Urine Yellow (P-Yellow); Glucose Qualitative, Urine Neg (Neg); Ketones, Urine Neg (Neg); Leukocyte Esterase, Urine Neg (Neg); Nitrite, Urine Neg (Neg); Protein, Urine 2+ (Neg); Specific Gravity, Urine 1.025 (1.003-1.022); Urobilinogen, Urine NORM (Normal)
[2022-08-26 19:15] VITALS: BP 90/66
[2022-08-26 19:21] LABS: Bacteria Few /hpf; Hyaline Casts 0-2 /lpf (0-2); Mucus Mod (0-Heavy); Squamous Epithelial Cells Few /hpf (Few)
== END 2022-08-26 19:37 | disposition home or self-care (01) ==
LOC: ER 13:25
PROVIDERS: Student in an Organized Health Care Education/Training Program
DX: K64.4 Residual hemorrhoidal skin tags (principal); R03.1 Nonspecific low blood-pressure reading; Z88.8 Allergy status to other drugs, medicaments and biological substances; Z79.899 Other long term (current) drug therapy; Z79.82 Long term (current) use of aspirin; I10 Essential (primary) hypertension; G47.30 Sleep apnea, unspecified; F43.10 Post-traumatic stress disorder, unspecified; I25.10 Atherosclerotic heart disease of native coronary artery without angina pectoris; Z87.891 Personal history of nicotine dependence
CPT/HCPCS: 71045; 80053; 81001; 82272; 85025; 86850; 86900; 86901; 93005; 93010; 96360; 99284-25; J7030

== ENCOUNTER 2022-09-09 22:47 | Emergency (ER) | payer OTHER ==
[~2022-09-09] VITALS: Ht 167.6 cm; Wt 60.8 kg
[2022-09-09 23:38] LABS: BASOPHILS ABSOLUTE AUTO 0.04 K/mm3 (0.00-0.23); BASOPHILS PERCENT AUTO 0 % (0-2); EOSINOPHILS ABSOLUTE AUTO 0.19 K/mm3 (0.00-0.68); EOSINOPHILS PERCENT AUTO 2 % (0-6); Hematocrit 29.1 % (33.0-51.0); Hemoglobin 9.6 g/dL (11.5-16.0); IMMATURE GRAN ABSOLUTE AUTO 0.03 K/mm3 (0.00-0.10); IMMATURE GRAN PERCENT AUTO 0 % (0-1); LYMPHOCYTES ABSOLUTE AUTO 2.33 K/mm3 (0.84-5.20); LYMPHOCYTES PERCENT AUTO 26 % (21-46); MONOCYTES ABSOLUTE AUTO 0.95 K/mm3 (0.16-1.47); MONOCYTES PERCENT AUTO 11 % (4-13); Mean Corpuscular HGB 31.8 pg (26.0-34.0); Mean Corpuscular Volume 96 fL (80-100); Mean Platelet Volume 9.9 fL (9.1-12.4); NEUTROPHILS ABSOLUTE AUTO 5.54 K/mm3 (1.96-9.15); NEUTROPHILS PERCENT AUTO 61 % (41-73); Platelet Count 359 K/mm3 (150-400); RDW Coefficient Variation 14.6 % (11.7-14.2); RDW Standard Deviation 51.2 fL (35.1-46.3); Red Blood Cell Count 3.02 M/mm3 (3.80-5.20); White Blood Cell Count 9.08 K/mm3 (4.00-11.30)
[2022-09-10 00:01] LABS: Albumin, Blood 3.3 g/dL (3.4-5.0); Bilirubin, Total 0.2 mg/dL (0.1-1.0); Bun/Creatinine Ratio 21.8 (12.0-20.0); Calcium, Blood 8.8 mg/dL (8.5-10.1); Creatinine, Blood 0.6 mg/dL (0.40-1.00); Globulin, Blood 3.4 g/dL (2.2-4.0); Potassium, Blood 3.6 mmol/L (3.5-5.5); Total Protein, Blood 6.7 g/dL (6.4-8.2)
[2022-09-10 02:43] VITALS: BP 119/74
== END 2022-09-10 02:43 | disposition home or self-care (01) ==
LOC: ER 22:47
PROVIDERS: Student in an Organized Health Care Education/Training Program
DX: R07.9 Chest pain, unspecified (principal); M54.10 Radiculopathy, site unspecified; Z88.8 Allergy status to other drugs, medicaments and biological substances; Z79.899 Other long term (current) drug therapy; Z79.82 Long term (current) use of aspirin; I10 Essential (primary) hypertension; G47.30 Sleep apnea, unspecified; F43.10 Post-traumatic stress disorder, unspecified; I25.10 Atherosclerotic heart disease of native coronary artery without angina pectoris; E78.5 Hyperlipidemia, unspecified; Z87.891 Personal history of nicotine dependence
CPT/HCPCS: 36415; 71046; 80053; 84484; 85025; 93005; 93010; 99284-25

== ENCOUNTER 2023-07-11 11:34 | Inpatient (IN) | payer OTHER ==
[~2023-07-11] VITALS: Ht 167.6 cm; Wt 67.9 kg
[2023-07-11] VITALS (12 sets, daily range): BP systolic 105–125; BP diastolic 53–94
[2023-07-11 12:28] LABS: BASOPHILS ABSOLUTE AUTO 0.06 K/mm3 (0.00-0.23); BASOPHILS PERCENT AUTO 1 % (0-2); EOSINOPHILS ABSOLUTE AUTO 0.16 K/mm3 (0.00-0.68); EOSINOPHILS PERCENT AUTO 1 % (0-6); Hematocrit 19.6 % (33.0-51.0); IMMATURE GRAN ABSOLUTE AUTO 0.06 K/mm3 (0.00-0.10); IMMATURE GRAN PERCENT AUTO 1 % (0-1); LYMPHOCYTES ABSOLUTE AUTO 1.47 K/mm3 (0.84-5.20); LYMPHOCYTES PERCENT AUTO 13 % (21-46); MONOCYTES ABSOLUTE AUTO 1.08 K/mm3 (0.16-1.47); MONOCYTES PERCENT AUTO 9 % (4-13); Mean Corpuscular HGB 16.6 pg (26.0-34.0); Mean Corpuscular HGB Conc 25.5 g/dL (31.5-36.5); Mean Corpuscular Volume 65 fL (80-100); Mean Platelet Volume 9.9 fL (9.1-12.4); NEUTROPHILS ABSOLUTE AUTO 8.65 K/mm3 (1.96-9.15); NEUTROPHILS PERCENT AUTO 75 % (41-73); NRBC ABSOLUTE 0.03 K/mm3 (0.00-0.02); NRBC Auto 0.3 /100 WBC (0.0-0.2); Platelet Count 466 K/mm3 (150-400); RDW Coefficient Variation 18.3 % (11.7-14.2); RDW Standard Deviation 43.2 fL (35.1-46.3); Red Blood Cell Count 3.01 M/mm3 (3.80-5.20); White Blood Cell Count 11.48 K/mm3 (4.00-11.30)
[2023-07-11 12:41] LABS: Albumin/Globulin Ratio 1.3 (0.8-1.8); Bilirubin, Total 0.4 mg/dL (0.1-1.0); Calcium, Blood 9.4 mg/dL (8.5-10.1); Creatinine, Blood 0.59 mg/dL (0.40-1.00); Globulin, Blood 3.1 g/dL (2.2-4.0); Potassium, Blood 3.9 mmol/L (3.5-5.5); Total Protein, Blood 7.1 g/dL (6.4-8.2)
[2023-07-11] MEDS ORDERED: NS 1,000 ML IV SCH (13:40)
[2023-07-11] MEDS ORDERED: Acetaminophen 500 MG Tab PO PRN (13:50)
[2023-07-11] MEDS ORDERED: Ondansetron HCl 2 MG / ML 2ML Vial IV PRN (13:55)
[2023-07-11] MEDS ORDERED: Polyethylene Glycol 3350 17 gm PO PRN (13:55)
[2023-07-11] MEDS ORDERED: FLU VACC QS2023-24(6MOS UP)/PF 60 MCG/0.5 ML SYRINGE IM SCH (13:55)
[2023-07-11] MEDS ORDERED: ISOSORBIDE MONO30 MG PO (14:00)
[2023-07-11] MEDS ORDERED: CYMBALTA60 MG PO (14:00)
[2023-07-11] MEDS ORDERED: Prochlorperazine Edisylate 10 mg Vial IV ONE (14:35)
[2023-07-11] MEDS ORDERED: Ondansetron HCl 2 MG / ML 2ML Vial IV ONE (15:10)
[2023-07-11 15:44] LABS: Hematocrit 23.6 % (33.0-51.0); Hemoglobin 6.3 g/dL (11.5-16.0)
[2023-07-11] MEDS ORDERED: IRBE75 PO (16:09)
[2023-07-11] MEDS ORDERED: Pantoprazole Sodium 40 MG Injection IV SCH (16:30)
[2023-07-11] MEDS ORDERED: Insulin Human Lispro 100 Units/ML 3ML Syringe SC SCH (16:30)
[2023-07-11] MEDS ORDERED: MethylPREDNISolone Sod Succ 125 MG Vial IV ONE (16:35)
[2023-07-11] MEDS ORDERED: DiphenhydrAMINE HCL 25 MG Cap PO ONE (16:35)
[2023-07-11] MEDS ORDERED: NS 500 ML IV SCH (17:30)
--- NOTE | 2023-07-11 17:57 | NUR ---
ADMIT NOTE PT ARRIVED TO PCU FROM ED VIA ED STRETCHER AT APPROX 1600. PT "SKOOCHED" FROM ED STRETCHER TO PCU BED INDEPENDENTLY. PT A&OX4. SP02>90% ON RA. TELEMETRY SHOWS SINUS TACH, HR 100'S. VSS. PT ASSISTED INTO GOWN. DENIED CP, C/O OF CHRONIC SHOULDER PAIN. PER REPORT, PT HAD TRANSFUSION REACTION TO 1UNIT PRBC IN ER. CALL PLACED TO MD MCKEON. MD MCKEON W/ ORDERS FOR BENADRYL AND SOLUMEDROL PRIOR TO SECOND UNIT INFUSED. MEDICATONS GIVEN. BLOOD BANK STATES CAN RELEASE SECOND UNIT SOON TRANSFUSION WORK UP COMPLETE, BLOOD BANK STATES BEFORE SHIFT CHANGE. HBG TO BE DRAWN 2 HRS POST TRANSFUSION. POWERGLIDE PLACED SHAHRZAD. PT ORIENTED TO ROOM, CALL LIGHT. IN ROOM. CALL LIGHT IN REACH.
[2023-07-12] VITALS (12 sets, daily range): BP systolic 108–153; BP diastolic 74–113
[2023-07-12 04:14] LABS: Hematocrit 25.3 % (33.0-51.0); Hemoglobin 7.3 g/dL (11.5-16.0); Mean Corpuscular HGB 19.8 pg (26.0-34.0); Mean Corpuscular HGB Conc 28.9 g/dL (31.5-36.5); Mean Corpuscular Volume 69 fL (80-100); Mean Platelet Volume 9.6 fL (9.1-12.4); NRBC ABSOLUTE 0.04 K/mm3 (0.00-0.02); NRBC Auto 0.5 /100 WBC (0.0-0.2); Platelet Count 435 K/mm3 (150-400); RDW Coefficient Variation 21.7 % (11.7-14.2); RDW Standard Deviation 52.6 fL (35.1-46.3); Red Blood Cell Count 3.69 M/mm3 (3.80-5.20); White Blood Cell Count 8.52 K/mm3 (4.00-11.30)
[2023-07-12 05:02] LABS: Albumin, Blood 3.8 g/dL (3.4-5.0); Anion Gap 3 mmol/L (6-16); Blood Urea Nitrogen 10 mg/dL (8-24); Bun/Creatinine Ratio 16.6 (12.0-20.0); CO2, Blood 26 mmol/L (21-32); Calcium, Blood 9.2 mg/dL (8.5-10.1); Chloride, Blood 113 mmol/L (98-108); Glomerular Filtration Rate 103 (60-); Glucose, Blood 147 mg/dL (70-99); Magnesium, Blood 2.2 mg/dL (1.6-2.4); Phosphorus, Blood 4.4 mg/dL (2.5-4.9); Potassium, Blood 4.1 mmol/L (3.5-5.5); Sodium, Blood 142 mmol/L (136-145)
--- NOTE | 2023-07-12 05:10 | NUR ---
SHIFT SUMMARY PT ALERT AND ORIENTED X 4, COOPERATIVE WITH CARE AND ABLE TO MAKE NEEDS KNOWN. ANGEL. WHEN PT IS AWAKE SHE IS ON RA AND MAINTAINS 02 SATURATION ABOVE 92%. PT WEARS HOME CPAP WHEN SLEEPING. AT BEGINNING OF SHIFT PT WAS ON CPAP AND DESATURATING INTO MID 80'S, RESPIRATORY ADDED 4L BLEED IN TO CPAP AND PT HAS BEEN MAINTAINING 02 SATURATION ABOVE 92% SINCE. HR 100'S AND BP STABLE, SEE VITALS. PT HAS DENIED CHEST PAIN/PRESSURE ALL SHIFT, SHE HAS COMPLAINED OF L SHOULDER AND L ARM PAIN INTERMITTENTLY ALL SHIFT, PT MEDICATED PER EMAR. AT BEGINNING OF SHIFT PT WAS RECEIVING BLOOD TRANSFUSION, PT TOLERATED WELL AND NO REACTION. POWERGLIDE TO SHAHRZAD PATENT/FLUSHED/SALINE LOCKED. PT CONTINENT AND USES BEDSIDE COMMODE WITH SBA, SHE TOLERATES WELL. PT SLEPT THE MAJORITY OF THE SHIFT WITH UNLABORED BREATHING PATTERN. SHE IS CURRENTLY RESTING IN BED WITH TV ON AND CALL LIGHT WITHIN REACH.
[2023-07-12] MEDS ORDERED: Cholecalciferol 1000 Unit Tablet (=25MCG) PO SCH (09:00)
[2023-07-12] MEDS ORDERED: Multivitamins 1 Tab PO SCH (09:00)
[2023-07-12 10:17] LABS: Hematocrit 23.6 % (33.0-51.0); Hemoglobin 6.8 g/dL (11.5-16.0)
[2023-07-12] MEDS ORDERED: MethylPREDNISolone Sod Succ 125 MG Vial IV ONE (10:35)
[2023-07-12] MEDS ORDERED: diphenhydrAMINE HCL 25 MG/10 ML UDC PO ONE (10:45)
[2023-07-12] MEDS ORDERED: DiphenhydrAMINE HCL 25 MG Cap PO ONE (10:55)
[2023-07-12] MEDS ORDERED: Nicotine 21 MG PATCH TOP SCH (13:00)
[2023-07-12 15:38] LABS: Hematocrit 28.8 % (33.0-51.0); Hemoglobin 8.3 g/dL (11.5-16.0)
[2023-07-12] MEDS ORDERED: DULoxetine HCL 60 MG Capsule DR PO SCH (16:15)
--- NOTE | 2023-07-12 17:23 | NUR ---
SHIFT SUMMARY PT A&OX4, ANXIOUS SECOND PART OF DAY. SP02>90% ON RA. HOME CPAP AT [facility]. TELEMETRY SHOWS NSR, HR 90'S-110'S, PEAKED TO 130'S W/ VOMITING. C/O OF L SHOULDER PAIN, MEDICATED W/ TYLENOL PER EMAR. PT HGB RESULTED <7, CALL PLACED TO . MD JEFFERY W/ ORDERS FOR PREMEDICATE BENADRYL AND SOLUMEDROL AND 1 UNIT PRBC. PT TOLERATED WELL UNTIL ABOUT 50MLS LEFT IN TRANFUSION BAG PT BEGAN TO HAVE PANIC ATTACK. PT SWEATY, NAUSEAUS, STATES SHE HAS PANIC ATTACKS AT HOME. PT STATES, "MY HAS BEEN DEALING WITH ME DOING THIS FOR 30 YEARS". PT REQUESTED TO BE DISCONNECTED FROM REMAINDER OF BLOOD AND TO GET IN SHOWER. PT TOOK 3 SHOWERS THIS AFTERNOON. CALL PLACED TO MD MCKEON. MD MCKEON W/ ORDERS TO RESTART PT'S CYMBALTA. PT CRYING OFF AND ON THIS AFTERNOON. WHEN ASKED IF OK, PT STATES, "I DONT KNOW WHATS WRONG". HBG 8.3 UPON RECHECK. PT HAS ORDERS TO MONITOR OVERNIGHT. CALL LIGHT IN REACH. WILL GIVE REPORT TO ONCOMING RN.
[2023-07-12] MEDS ORDERED: Ondansetron HCl 2 MG / ML 2ML Vial IV ONE (17:40)
[2023-07-12] MEDS ORDERED: LORazepam 0.5 MG Tab PO ONE ×2 (17:40→23:00)
--- NOTE | 2023-07-12 17:40 | NUR ---
UPDATE PT C/O OF NAUSEA AND ANXIETY/PANIC ATTACK. PT STATES SMOKES MARJUANA AT HOME FOR ANXIETY. CALL PLACED TO MD MCKEON. MD MCKEON W/ ORDERS FOR ONE TIME [facility], SEE EMAR.
[2023-07-12] MEDS ORDERED: Promethazine HCl 25 MG Tab PO PRN (22:25)
[2023-07-13 03:00] VITALS: BP 144/92
--- NOTE | 2023-07-13 04:29 | NUR ---
SHIFT SUMMARY PT ALERT AND ORIENTED X 4, COOPERATIVE WITH CARE AND ABLE TO MAKE NEEDS KNOWN. ANGEL. WHILE PT AWAKE SHE WAS ON RA AND WHEN SLEEPING ON HOME CPAP W/6L BLEED IN AND MAINTAINED O2 SATURATION ABOVE 92%. PT C/O NAUSEA, VOMITING, ANXIETY. MD NOTIFIED AND PT MEDICATED PER EMAR. HER HR HAS BEEN ST 100'S-120'S, SHE HAS DENIED CHEST PAIN/PRESSURE AND LEFT SHOULDER/ARM PAIN ALL SHIFT. PT TOOK A SHOWER DURING SHIFT AND REQUESTED BAGS OF ICE FOR COMFORT. SHE SAID THAT WHEN SHE HAS THESE "EPISODES" THE COLD FROM THE BAGS OF ICE AFTER A SHOWER HELP HER FEEL BETTER. PT FELL TO SLEEP AT APPROXIMATELY 0330 WITH HOME CPAP ON W/6L BLEED IN. UNLABORED BREATHING PATTERN. TV ON AND CALL LIGHT WITHIN REACH.
[2023-07-13 07:18] VITALS: BP 144/86
[2023-07-13 08:06] LABS: BASOPHILS ABSOLUTE AUTO 0.01 K/mm3 (0.00-0.23); BASOPHILS PERCENT AUTO 0 % (0-2); EOSINOPHILS ABSOLUTE AUTO 0.02 K/mm3 (0.00-0.68); EOSINOPHILS PERCENT AUTO 0 % (0-6); Hematocrit 29.7 % (33.0-51.0); Hemoglobin 8.6 g/dL (11.5-16.0); IMMATURE GRAN PERCENT AUTO 1 % (0-1); LYMPHOCYTES PERCENT AUTO 3 % (21-46); MONOCYTES ABSOLUTE AUTO 1.43 K/mm3 (0.16-1.47); MONOCYTES PERCENT AUTO 7 % (4-13); Mean Corpuscular HGB 20.2 pg (26.0-34.0); Mean Corpuscular Volume 70 fL (80-100); Mean Platelet Volume 9.8 fL (9.1-12.4); NEUTROPHILS ABSOLUTE AUTO 17.36 K/mm3 (1.96-9.15); NEUTROPHILS PERCENT AUTO 89 % (41-73); NRBC ABSOLUTE 0.08 K/mm3 (0.00-0.02); NRBC Auto 0.4 /100 WBC (0.0-0.2); Platelet Count 407 K/mm3 (150-400); RDW Coefficient Variation 22.9 % (11.7-14.2); RDW Standard Deviation 56.4 fL (35.1-46.3); Red Blood Cell Count 4.25 M/mm3 (3.80-5.20); White Blood Cell Count 19.52 K/mm3 (4.00-11.30)
[2023-07-13 08:25] LABS: Albumin/Globulin Ratio 1.1 (0.8-1.8); Bilirubin, Total 0.5 mg/dL (0.1-1.0); Bun/Creatinine Ratio 36.6 (12.0-20.0); Calcium, Blood 9.5 mg/dL (8.5-10.1); Creatinine, Blood 0.52 mg/dL (0.40-1.00); Globulin, Blood 3.6 g/dL (2.2-4.0); Potassium, Blood 3.6 mmol/L (3.5-5.5); Total Protein, Blood 7.6 g/dL (6.4-8.2)
[2023-07-13] MEDS ORDERED: DiphenhydrAMINE HCL 25 MG Cap PO PRN (11:50)
[2023-07-13 11:55] VITALS: BP 146/101
[2023-07-13 16:28] VITALS: BP 138/93
--- NOTE | 2023-07-13 18:07 | NUR ---
SHIFT SUMMARY PT ALERT, ORIENTED, ABLE TO MAKE NEEDS KNOWN. ANXIOUS. BENADRYL GIVEN PER EMAR FOR ANXIETY. PT STATES SHE IS HAVING A PANIC ATTACK SINCE LAST EVENING AND "IT STARTING TO COME OUT OF IT". SP02>90 %ON 2L NC, CPAP W/ 6L BLEED IN. TELEMETRY IS TACHYCARDIC MOSTLY 120'S BUT 130'S-160'S W/ AMBULATION/SHOWERING/VOMITTING. MD JEFFERY NOTIFIED. SHOWER X2 TODAY. VOMITTED MULTIPLE TIMES THIS MORNING, MEDICATED PER EMAR. PT UP TO BATHROOM TO VOID. PT REQUESTED ICE PACKS MULTPLE TIMES TO 'COOL DOWN'. TEMPERATURE IN NORMAL RANGE WHEN TAKEN TEMPORALLY AND ORALLY. CALL LIGHT IN REACH.
[2023-07-13 20:07] VITALS: BP 120/85
[2023-07-13] MEDS ORDERED: Docusate Sodium 100 MG Cap PO SCH (21:00)
[2023-07-13] MEDS ORDERED: Carvedilol 6.25 MG Tab PO SCH (21:00)
[2023-07-13] MEDS ORDERED: Ascorbic Acid 500 MG Tab PO SCH (21:00)
[2023-07-13] MEDS ORDERED: Atorvastatin 40 MG Tab PO SCH (21:00)
[2023-07-13 23:46] VITALS: BP 126/86
[2023-07-14] VITALS (9 sets, daily range): BP systolic 90–135; BP diastolic 61–103
--- NOTE | 2023-07-14 05:09 | NUR ---
SHIFT SUMMARY ASSUMED CARE OF PT AT 1900. PT IS A/OX4. PT WAS VERY T ACHY AT START OF SHIFT FROM 120-140 BPM. PT RESTED AND FELL ASLEEP, RATE DECRASED TO 100-110 BPM. LUNG SOUNDS HAVE EXPIRATORY WHEEZES. PT WAS ON 2L NC WHILE AWAKE AND 6L CPAP WHILE SLEEPING. PT HAD NC OFF THIS AM AT VITALS CHECK AND WAS 100% ON RA. PT WAS INDEPENDNET IN ROOM. PT C/O L SHOULDER PAIN AND NEASEA THIS AM. PT HAD NO MORNING LABS THIS AM, HOSPITALIST NOTIFIED AND WAS UNSURE WHY BUT SAID DAY HOSPITALIST MIKE WOULD PUT THEM IN THIS AM.
[2023-07-14] MEDS ORDERED: Losartan Potassium 25 MG Tab PO SCH (09:00)
[2023-07-14] MEDS ORDERED: Isosorbide Mononitrate 30 MG TABCR PO SCH (09:00)
[2023-07-14 09:23] LABS: BASOPHILS ABSOLUTE AUTO 0.04 K/mm3 (0.00-0.23); BASOPHILS PERCENT AUTO 0 % (0-2); EOSINOPHILS ABSOLUTE AUTO 0.01 K/mm3 (0.00-0.68); EOSINOPHILS PERCENT AUTO 0 % (0-6); Hematocrit 29.2 % (33.0-51.0); Hemoglobin 8.4 g/dL (11.5-16.0); IMMATURE GRAN ABSOLUTE AUTO 0.05 K/mm3 (0.00-0.10); IMMATURE GRAN PERCENT AUTO 0 % (0-1); LYMPHOCYTES PERCENT AUTO 7 % (21-46); MONOCYTES ABSOLUTE AUTO 1.42 K/mm3 (0.16-1.47); MONOCYTES PERCENT AUTO 9 % (4-13); Mean Corpuscular HGB 20.1 pg (26.0-34.0); Mean Corpuscular HGB Conc 28.8 g/dL (31.5-36.5); Mean Corpuscular Volume 70 fL (80-100); NEUTROPHILS ABSOLUTE AUTO 13.29 K/mm3 (1.96-9.15); NEUTROPHILS PERCENT AUTO 84 % (41-73); NRBC ABSOLUTE 0.06 K/mm3 (0.00-0.02); NRBC Auto 0.4 /100 WBC (0.0-0.2); Platelet Count 342 K/mm3 (150-400); RDW Coefficient Variation 24.2 % (11.7-14.2); RDW Standard Deviation 59.6 fL (35.1-46.3); Red Blood Cell Count 4.17 M/mm3 (3.80-5.20); White Blood Cell Count 15.91 K/mm3 (4.00-11.30)
[2023-07-14 09:40] LABS: Percent Saturation 3.2 % (15.0-50.0)
[2023-07-14] MEDS ORDERED: Iron Dextran 25 MG in NS 50 ML IV ONE (11:05)
--- NOTE | 2023-07-14 12:51 | NUR ---
TRANSFER UPDATE REPORT RADHA TO [facility] RN AT 1258.
[2023-07-14] MEDS ORDERED: Iron Dextran 975 MG in NS 250 ML IV ONE (13:00)
--- NOTE | 2023-07-14 13:14 | NUR ---
ASSUMED CARE NOTE ASSUMED CARE OF PT AT APPROX 1310. PT ARRIVED VIA BED AND TRANSFERED IND. PT REPORTED NAUSEA UPON ARRIVAL THAT WAS MEDICATED IN THE PCU. PT A&OX4 AND DENIED PAIN. PT ORIENTED TO ROOM AND CALL LIGHT. CALL LIGHT PLACED WITHIN REACH.
--- NOTE | 2023-07-14 18:04 | NUR ---
DISCHARGE NOTE PT DISCHARGED HOME AT APPROX 1803. PT PROVIDED W/ VERBAL AND WRITTEN INSTRUCTIONS AND REPORTED UNDERSTANDING. PT A&OX4, VSS, AMB IND, TOLERATING PO, VOIDING, AND DENIED PAIN. PT ESCOURTED OUT BY CAROL GILLESPIE.
== END 2023-07-14 18:20 | disposition home or self-care (01) | DRG 812 ==
LOC: ER 11:34 → PCU 13:49 → ERHOLD 13:49 → PCU 15:55 → MEDS 07-14 13:29
PROVIDERS: Family Medicine; Physician Assistant; Student in an Organized Health Care Education/Training Program; ADMIT Internal Medicine
PROC: 30233N1 Transfusion of Nonautologous Red Blood Cells into Peripheral Vein, Percutaneous Approach (ICD-10-PCS; principal; 2023-07-12)
DX: D62 Acute posthemorrhagic anemia (principal); F33.9 Major depressive disorder, recurrent, unspecified; F41.9 Anxiety disorder, unspecified; I25.118 Atherosclerotic heart disease of native coronary artery with other forms of angina pectoris; K21.9 Gastro-esophageal reflux disease without esophagitis; G47.33 Obstructive sleep apnea (adult) (pediatric); D72.829 Elevated white blood cell count, unspecified; D75.839 Thrombocytosis, unspecified; R73.9 Hyperglycemia, unspecified; F43.10 Post-traumatic stress disorder, unspecified; I10 Essential (primary) hypertension; E78.5 Hyperlipidemia, unspecified; F17.210 Nicotine dependence, cigarettes, uncomplicated; Z95.5 Presence of coronary angioplasty implant and graft; Z88.8 Allergy status to other drugs, medicaments and biological substances; Z86.73 Personal history of transient ischemic attack (TIA), and cerebral infarction without residual deficits; I25.2 Old myocardial infarction; Z98.890 Other specified postprocedural states; Z79.82 Long term (current) use of aspirin; Z79.02 Long term (current) use of antithrombotics/antiplatelets; Z79.899 Other long term (current) drug therapy
CPT/HCPCS: 36415; 36430; 71046; 80053; 80069; 82607; 82728; 82746; 82947; 83036; 83540; 83550; 83690; 83735; 84484; 85014; 85018; 85025; 85027; 86850; 86900; 86901; 86922; 86923; 93005; 93010; 94660; 94760; 94762; 96374; 96375; 96376; 99285-25; A9270; C9113; J0780; J1750; J2405; J2930; J7030; J7040; J7050; P9016

== ENCOUNTER 2024-02-02 11:04 | Inpatient (IN) | payer OTHER ==
[~2024-02-02] VITALS: Ht 167.6 cm; Wt 63.6 kg
[~2024-02-02 11:04] MED LIST changes: +CYMBALTA60 MG PO; +ISOSORBIDE MONO30 MG PO
[2024-02-02] MEDS ORDERED: Lactated Ringer's 1,000 ML IV ONE (14:20)
[2024-02-02 14:32] LABS: Hematocrit 37.9 % (33.0-51.0); Hemoglobin 12.8 g/dL (11.5-16.0); Mean Corpuscular HGB 28.3 pg (26.0-34.0); Mean Corpuscular HGB Conc 33.8 g/dL (31.5-36.5); Mean Corpuscular Volume 84 fL (80-100); Mean Platelet Volume 12.7 fL (9.1-12.4); Platelet Count 400 K/mm3 (150-400); RDW Coefficient Variation 15.6 % (11.7-14.2); RDW Standard Deviation 47.5 fL (35.1-46.3); Red Blood Cell Count 4.53 M/mm3 (3.80-5.20); White Blood Cell Count 26.66 K/mm3 (4.00-11.30)
[2024-02-02 14:50] LABS: BASOPHILS PERCENT MAN 0 % (0-2); EOSINOPHILS PERCENT MAN 0 % (0-6); LYMPHOCYTES ABSOLUTE MAN 1.33 K/mm3 (0.84-5.20); LYMPHOCYTES PERCENT MAN 5 % (21-46); MONOCYTES ABSOLUTE MAN 1.86 K/mm3 (0.16-1.47); MONOCYTES PERCENT MAN 7 % (4-13); NEUTROPHILS ABSOLUTE MAN 23.46 K/mm3 (1.96-9.15); SEG NEUTROPHILS PERCENT MAN 88 % (41-73); TOTAL CELLS COUNTED 100
[2024-02-02 15:10] LABS: Albumin, Blood 4.2 g/dL (3.4-5.0); Albumin/Globulin Ratio 1.1 (0.8-1.8); Bilirubin, Total 0.7 mg/dL (0.1-1.0); Bun/Creatinine Ratio 16.9 (12.0-20.0); Creatinine, Blood 2.01 mg/dL (0.40-1.00); Globulin, Blood 3.8 g/dL (2.2-4.0); Potassium, Blood 3.3 mmol/L (3.5-5.5); Thyroid Stimulating Hormone 1.17 uIU/mL (0.360-4.800)
[2024-02-02] MEDS ORDERED: NS 1,000 ML IV SCH (15:40)
[2024-02-02] MEDS ORDERED: FERSU300 PO (15:44)
[2024-02-02] MEDS ORDERED: FLU VACC TS2024-25(6MOS UP)/PF 45 MCG/0.5 ML SYRINGE IM SCH (15:45)
[2024-02-02] MEDS ORDERED: Ondansetron HCl 2 MG / ML 2ML Vial IV PRN (15:45)
[2024-02-02] MEDS ORDERED: Acetaminophen 325 MG TABLET PO PRN (15:45)
[2024-02-02] MEDS ORDERED: Potassium Chloride 20 MEQ TabCR PO ONE (17:00)
[2024-02-02] MEDS ORDERED: Megestrol Acetate Susp 400MG/10ML UDC PO SCH (17:00)
[2024-02-02 18:08] LABS: Source, Urine Straight Cath
[2024-02-02 18:33] LABS: Appearance, Urine Hazy (Clear); Bilirubin, Urine Neg (Neg); Blood, Urine 2+ (Neg); Color, Urine Yellow (P-Yellow); Glucose Qualitative, Urine 2+ (Neg); Ketones, Urine 1+ (Neg); Leukocyte Esterase, Urine Neg (Neg); Nitrite, Urine Neg (Neg); Protein, Urine 3+ (Neg); Specific Gravity, Urine 1.025 (1.003-1.022); Urobilinogen, Urine NORM (Normal)
[2024-02-02 18:51] LABS: Uric Acid Crystals Many /hpf
[2024-02-02 18:52] LABS: Bacteria Many /hpf; Calcium Oxalate Crystals Mod /hpf; Granular Casts 0-2 /lpf (0); Squamous Epithelial Cells Mod /hpf (Few)
[2024-02-02 19:02] LABS: Influenza A, PCR NEGATIVE (NEGATIVE); Influenza B, PCR NEGATIVE (NEGATIVE); Resp Syncytial Virus, PCR NEGATIVE (NEGATIVE); SARS-Cov-2 (COVID-19) PCR, MMC NEGATIVE (NEGATIVE)
[2024-02-02 19:10] VITALS: BP 114/68
[2024-02-02] MEDS ORDERED: OLANZapine 5 MG Tab PO SCH (21:00)
[2024-02-02] MEDS ORDERED: Ascorbic Acid 500 MG Tab PO SCH (21:00)
[2024-02-02] MEDS ORDERED: Carvedilol 6.25 MG Tab PO SCH (21:00)
[2024-02-02] MEDS ORDERED: Atorvastatin 40 MG Tab PO SCH (21:00)
[2024-02-02] MEDS ORDERED: Docusate Sodium 100 MG Cap PO SCH (21:00)
[2024-02-02] MEDS ORDERED: DIPH50 PO (23:28)
[2024-02-02] MEDS ORDERED: FURO20 PO (23:32)
[2024-02-03] VITALS (9 sets, daily range): BP systolic 62–114; BP diastolic 42–70
[2024-02-03] MEDS ORDERED: NS 500 ML IV ONE (03:50)
[2024-02-03 06:33] LABS: Bun/Creatinine Ratio 19.2 (12.0-20.0); Creatinine, Blood 1.3 mg/dL (0.40-1.00); Potassium, Blood 2.6 mmol/L (3.5-5.5)
[2024-02-03 06:34] LABS: Calcium, Blood 8.7 mg/dL (8.5-10.1)
--- NOTE | 2024-02-03 06:50 | NUR ---
SHIFT SUMMARY NOC PT A/O X 4. ADMIT FROM ED WIT RED AND ANOREXIA NERVOSA. PT IS VERY LABILE AT TIMES AND REFUSES TO COOPERATE, AND AT OTHER TIMES COOPERATES FULLY WITH CARE. PT REPORTS WEIGHTLOSS OF ROUGHLY 30 LBS OVER THE LAST MONTH WELL GENERALIZED WEAKNESS. PT ALSO REPORTED BRIGHT RED BLOOD IN STOOL AT HOME, BUT IS DECLINING TO HAVE A HAT PLACED IN COMMODE. PT HAD SOFT BP 84/59 AND NS 500 ML BOLUS GIVEN ALONG WITH INFUSION OF NS @ 150 ML/HR. AFTER BOLUS BP 92/66, BUT POTASSIUM 2.6. PT IS INDEPENDENT AND CONTINENT. PT CURRENTLY RESTING WITH BED IN LOWEST POSITION, AND CALL LIGHT WITHIN REACH.
[2024-02-03] MEDS ORDERED: Potassium Chloride 20 MEQ TabCR PO ONE ×2 (07:25→16:20)
[2024-02-03] MEDS ORDERED: Potassium Chl 20MEQ/Water100ML 100 ML IV SCH (07:30)
[2024-02-03] MEDS ORDERED: Mag Sulfate 1 GM/D5% 100ML 100 ML IV STA (08:54)
[2024-02-03] MEDS ORDERED: Isosorbide Mononitrate 30 MG TABCR PO SCH (09:00)
[2024-02-03] MEDS ORDERED: Heparin Sodium,Porcine 5,000 UNIT/0.5 ML SDV SC SCH (09:00)
[2024-02-03] MEDS ORDERED: Famotidine 20 MG Tab PO SCH ×2 (09:00)
[2024-02-03] MEDS ORDERED: Aspirin 81 MG Chew PO SCH (09:00)
[2024-02-03] MEDS ORDERED: DULoxetine HCL 60 MG Capsule DR PO SCH (09:00)
[2024-02-03] MEDS ORDERED: Ferrous Sulfate 325 MG Tab PO SCH (09:00)
[2024-02-03 14:12] LABS: Bun/Creatinine Ratio 22.1 (12.0-20.0); Calcium, Blood 8.5 mg/dL (8.5-10.1); Creatinine, Blood 1.04 mg/dL (0.40-1.00); Potassium, Blood 3.2 mmol/L (3.5-5.5)
[2024-02-03] MEDS ORDERED: Lactated Ringer's 1,000 ML IV ONE (16:05)
[2024-02-03] MEDS ORDERED: Midodrine 5 MG Tab PO STA (16:17)
--- NOTE | 2024-02-03 16:44 | NUR ---
SHIFT SUMMARY PT AWAKE DURING SHIFT REPORT, WATCHING TV. PT IS A&O, PLEASANT AND CO-OP WITH CARE. UP INDEPENDENTLY TO BTHRM NEEDED. WILL CALL FOR ASSIST IF NEEDED WELL. PT RECEIVING IVF'S AND IV KCL. PT'S BP LOW THIS AFTERNOON; SEE CHART. DR CUMMINGS NOTIFIED; NEW ORDERS RECEIVED AND GIVEN. BOLUS INFUSING AT THIS TIME. BP TO BE UZAIR'D WHEN COMPLETE. PT IS ASYMPTOMATIC, BUT INSTRUCTED TO CALL FOR ASSIST IF NEEDING TO GET UP. NO C/O. CALL LT IN REACH.
--- NOTE | 2024-02-03 17:46 | NUR ---
DR CUMMINGS UPDATED ON PT STATUS. BP INCREASED AFTER BOLUS AND MIDODRINE; SEE CHART. IV ACCESS LOST AFTER BOLUS INFUSED. OK TO LEAVE IV OUT, UNLESS PT BECOMES SYMPTOMATIC WITH HYPOTENSION. STRAWHAT SIZER, MALCOLM, UPDATED ON PT STATUS WELL. WILL REPORT TO ONCOMING RN.
[2024-02-04 01:19] LABS: VITAMIN D,1,25-DIHYDROXY 25.9 pg/mL (19.9-79.3)
[2024-02-04 04:12] VITALS: BP 94/62
[2024-02-04 05:15] LABS: Bun/Creatinine Ratio 22.2 (12.0-20.0); Calcium, Blood 8.4 mg/dL (8.5-10.1); Creatinine, Blood 0.9 mg/dL (0.40-1.00); Magnesium, Blood 2.2 mg/dL (1.6-2.4); Potassium, Blood 3.9 mmol/L (3.5-5.5)
--- NOTE | 2024-02-04 05:21 | NUR ---
SHIFT SUMMARY NOC PT A/O X 4. PLEASANT AND COOPERATIVE WITH CARE. BP STABLE. PT HAS NO IV ACCESS ORDER PLACED DURING DAY SHIFT WITH INSTRUCTION TO REGAIN IV ACCESS IF PT BECOMES HYPOTENSIVELY SYMPTOMATIC. PT REPORTS THAT APPETITE IS IMPROVING AND ATE ENTIRE MEAL FOR DINNER, PO FLUID INTAKE ALSO IMPROVED BP HAS IMPROVED. PT POSSIBLE DISCHARGE TODAY NOW THAT RED IS ALMOST RESOLVED. PT AM LABS SHOWED ELECTROLYTES AND RENAL FUNCTION WNL. PT CURRENTLY RESTING WITH BED IN LOWEST POSITION, AND CALL LIGHT WITHIN REACH.
[2024-02-04 07:38] VITALS: BP 94/71
[2024-02-04] MEDS ORDERED: Famotidine 20 MG Tab PO SCH (09:00)
[2024-02-04] MEDS ORDERED: MEGESTROL400 MG/13 PO (10:15)
[2024-02-04] MEDS ORDERED: OLAN5 PO (10:16)
--- NOTE | 2024-02-04 10:59 | NUR ---
DISCHARGE NOTE: DISCHARGE MED REC REVIEWED WITH PATIENT, PT STATED UNDERSTANDING. SHE REQUESTED MEDS BE FAXED TO [facility]. THIS RN NOTIFIED PATIENT THAT DUE TO IT BEING THE [facility]. PATIENT STILL REQUESTED [facility] STATING UNDERSTANDING THAT IT WOULD BE SEVERAL DAYS BEFORE MEDS WOULD BE AVAILABLE. THIS RN ESCORTED PATIENT TO DOOR, TO TRANSFER HOME. ALL QUESTIONS AND ANSWERED AND NO NEEDS AT TIME OF DISCHARGE.
== END 2024-02-04 10:51 | disposition home or self-care (01) | DRG 683 ==
LOC: ER 11:04 → MEDS 11:05 → ENPENDDIS 02-04 09:33 → MEDS 02-04 10:51
PROVIDERS: Emergency Medicine; ADMIT Internal Medicine
DX: N17.9 Acute kidney failure, unspecified (principal); E87.1 Hypo-osmolality and hyponatremia; I10 Essential (primary) hypertension; G47.33 Obstructive sleep apnea (adult) (pediatric); F43.10 Post-traumatic stress disorder, unspecified; F41.9 Anxiety disorder, unspecified; F60.3 Borderline personality disorder; K21.9 Gastro-esophageal reflux disease without esophagitis; E78.5 Hyperlipidemia, unspecified; I25.10 Atherosclerotic heart disease of native coronary artery without angina pectoris; E83.52 Hypercalcemia; R63.0 Anorexia; E87.6 Hypokalemia; D72.829 Elevated white blood cell count, unspecified; I95.9 Hypotension, unspecified; Z99.89 Dependence on other enabling machines and devices; Z86.73 Personal history of transient ischemic attack (TIA), and cerebral infarction without residual deficits; Z95.5 Presence of coronary angioplasty implant and graft; Z98.890 Other specified postprocedural states; Z87.891 Personal history of nicotine dependence; Z88.8 Allergy status to other drugs, medicaments and biological substances; Z79.82 Long term (current) use of aspirin; Z79.899 Other long term (current) drug therapy
CPT/HCPCS: 0241U; 36415; 71045; 80048; 80053; 81001; 82570; 82652; 83605; 83735; 84300; 84443; 85025; 87086; 93005; 93010; 96360; 96361; 96365; 96366; 96367; 96372; 99285-25; A9270; G0378; J1644; J3475; J3480; J7030; J7120

== ENCOUNTER 2024-02-07 14:51 | Inpatient (IN) | payer OTHER ==
[~2024-02-07] VITALS: Ht 167.6 cm; Wt 72.2 kg
[~2024-02-07 14:51] MED LIST changes: +DIPH50 PO; +MEGESTROL400 MG/13 PO; +OLAN5 PO
[2024-02-07 15:51] LABS: BASOPHILS ABSOLUTE AUTO 0.03 K/mm3 (0.00-0.23); BASOPHILS PERCENT AUTO 0 % (0-2); EOSINOPHILS ABSOLUTE AUTO 0.41 K/mm3 (0.00-0.68); EOSINOPHILS PERCENT AUTO 4 % (0-6); Hematocrit 27.1 % (33.0-51.0); Hemoglobin 8.5 g/dL (11.5-16.0); IMMATURE GRAN ABSOLUTE AUTO 0.11 K/mm3 (0.00-0.10); IMMATURE GRAN PERCENT AUTO 1 % (0-1); LYMPHOCYTES ABSOLUTE AUTO 2.48 K/mm3 (0.84-5.20); LYMPHOCYTES PERCENT AUTO 25 % (21-46); MONOCYTES ABSOLUTE AUTO 1.06 K/mm3 (0.16-1.47); MONOCYTES PERCENT AUTO 11 % (4-13); Mean Corpuscular HGB 28.2 pg (26.0-34.0); Mean Corpuscular HGB Conc 31.4 g/dL (31.5-36.5); Mean Corpuscular Volume 90 fL (80-100); Mean Platelet Volume 10.4 fL (9.1-12.4); NEUTROPHILS ABSOLUTE AUTO 5.89 K/mm3 (1.96-9.15); NEUTROPHILS PERCENT AUTO 59 % (41-73); NRBC ABSOLUTE 0.03 K/mm3 (0.00-0.02); NRBC Auto 0.3 /100 WBC (0.0-0.2); Platelet Count 269 K/mm3 (150-400); RDW Coefficient Variation 17.8 % (11.7-14.2); RDW Standard Deviation 58.6 fL (35.1-46.3); Red Blood Cell Count 3.01 M/mm3 (3.80-5.20); White Blood Cell Count 9.98 K/mm3 (4.00-11.30)
[2024-02-07 16:10] LABS: Albumin, Blood 2.9 g/dL (3.4-5.0); Bilirubin, Total 0.3 mg/dL (0.1-1.0); Bun/Creatinine Ratio 15.4 (12.0-20.0); Calcium, Blood 8.7 mg/dL (8.5-10.1); Creatinine, Blood 0.78 mg/dL (0.40-1.00); Total Protein, Blood 5.9 g/dL (6.4-8.2)
[2024-02-07] MEDS ORDERED: Aspirin 325 MG Tab PO ONE (17:35)
[2024-02-07] MEDS ORDERED: NS 1,000 ML IV SCH (17:45)
[2024-02-07] MEDS ORDERED: FLU VACC TS2024-25(6MOS UP)/PF 45 MCG/0.5 ML SYRINGE IM ONE (18:15)
[2024-02-07] MEDS ORDERED: Ondansetron HCl 2 MG / ML 2ML Vial IV PRN (18:15)
[2024-02-07] MEDS ORDERED: LORazepam 2 MG/ML 1ML Injection IV PRN (18:15)
[2024-02-07 18:26] LABS: Base Excess Venous -1.3 mmol/L; Bicarbonate Venous 23.5 mmol/L (24.0-30.0); PCO2 Venous 36.4 mmHg (38-42); pH Blood Venous 7.42 (7.34-7.37)
[2024-02-07] MEDS ORDERED: Dose Adjust by Pharmacy XX STA (18:27)
[2024-02-07] MEDS ORDERED: Heparin Sodium,Porcine/0.5 NS 500 ML IV SCH (18:30)
[2024-02-07] MEDS ORDERED: Heparin Sodium 5000 Units/ML 1ML MDV IV ONE (18:30)
[2024-02-07 18:51] LABS: Anti-Xa UFH, PHA Monitoring <0.10 IU/mL; International Normalized Ratio 0.89; Prothrombin Time Results 9.6 Sec (9.7-11.5)
[2024-02-07 19:09] LABS: Percent Saturation 32.4 % (15.0-50.0)
--- NOTE | 2024-02-07 20:15 | NUR ---
ADMIT RECEIVED FROM ER VIA GURNEY. AWAKE AND ALERT AT THIS TIME. C/O MILD CHEST PRESSURE- STATES "I THINK IT'S BECAUSE I'M FEELING ANXIOUS." C/O MILD SOB. RESPIRATIONS EVEN AND UNLABORED. DENIES NAUSEA. SKIN W/D. HEPARIN INFUSING AT 15UNITS/KG/HR (21MLs/HR) PER PHARMACY. SEE ADMIT ASSESSMENT FOR FULL ASSESSMENT.
[2024-02-07 20:23] VITALS: BP 121/76
--- NOTE | 2024-02-07 20:30 | NUR ---
UPDATE PT DENIES CHEST PAIN/PRESSURE AT THIS TIME. STATES ANXIETY IS MUCH BETTER NOW THAT SHE'S SETTLED IN A ROOM.
[2024-02-07] MEDS ORDERED: Famotidine 20 MG Tab PO SCH (21:00)
[2024-02-07 22:41] LABS: Hematocrit 25.4 % (33.0-51.0)
[2024-02-07 22:56] VITALS: BP 135/94
[2024-02-08] VITALS (11 sets, daily range): BP systolic 100–141; BP diastolic 67–102
[2024-02-08 01:06] LABS: Hematocrit 26.2 % (33.0-51.0); Hemoglobin 8.2 g/dL (11.5-16.0); Mean Corpuscular HGB 28.3 pg (26.0-34.0); Mean Corpuscular HGB Conc 31.3 g/dL (31.5-36.5); Mean Corpuscular Volume 90 fL (80-100); Mean Platelet Volume 10.1 fL (9.1-12.4); NRBC ABSOLUTE 0.03 K/mm3 (0.00-0.02); NRBC Auto 0.3 /100 WBC (0.0-0.2); Platelet Count 292 K/mm3 (150-400); RDW Standard Deviation 58.4 fL (35.1-46.3); White Blood Cell Count 8.68 K/mm3 (4.00-11.30)
[2024-02-08 01:25] LABS: Alanine Aminotransfer (ALT/SGP 15 U/L (12-78); Albumin, Blood 2.7 g/dL (3.4-5.0); Albumin/Globulin Ratio 0.9 (0.8-1.8); Alk Phos 47 U/L (50-136); Anion Gap 13 mmol/L (3-11); Aspartate Aminotrans (AST/SGOT 12 U/L (12-37); Bilirubin, Total 0.2 mg/dL (0.1-1.0); Blood Urea Nitrogen 12 mg/dL (8-24); Bun/Creatinine Ratio 15.1 (12.0-20.0); CHOL/HDL RATIO 2.2; CO2, Blood 22 mmol/L (21-32); Calcium, Blood 8.5 mg/dL (8.5-10.1); Chloride, Blood 113 mmol/L (98-108); Cholesterol 129 mg/dL (50-200); Creatinine, Blood 0.79 mg/dL (0.40-1.00); Globulin, Blood 2.9 g/dL (2.2-4.0); Glomerular Filtration Rate 86 (60-); Glucose, Blood 104 mg/dL (70-99); HDL Cholesterol 60 mg/dL (>39); LDL/HDL RATIO 0.8; Low Density Lipoprotein Chol 47 mg/dL (0-110); Potassium, Blood 4.1 mmol/L (3.5-5.5); Sodium, Blood 144 mmol/L (136-145); Total Protein, Blood 5.6 g/dL (6.4-8.2); Triglycerides 108 mg/dL (30-160); Very Low Density Lipoprot Chol 21 mg/dL (6-32)
[2024-02-08] MEDS ORDERED: Clarify Drug Order XX ONE (01:30)
[2024-02-08 02:21] LABS: Source, Urine Clean Catch
[2024-02-08 02:23] LABS: Bilirubin, Urine Neg (Neg); Blood, Urine Neg (Neg); Glucose Qualitative, Urine 2+ (Neg); Ketones, Urine Neg (Neg); Leukocyte Esterase, Urine Neg (Neg); Nitrite, Urine Neg (Neg); Protein, Urine Neg (Neg); Urobilinogen, Urine NORM (Normal)
[2024-02-08 02:28] LABS: Appearance, Urine Clear (Clear); Color, Urine Pale Yellow (P-Yellow)
--- NOTE | 2024-02-08 06:12 | NUR ---
SHIFT SUMMARY NO ACUTE CHANGES DURING NOC. RESTED QUIETLY WHEN UNDISTURBED. NO FURTHER C/O CHEST PAIN/PRESSURE SINCE ADMIT. REPOSITIONS SELF IN BED. UP TO BATHROOM WITH JUST STAND-BY ASSIST. VSS. RA SATS 99-100%. RESPIRATIONS EVEN AND UNLABORED. VOIDING WITHOUT DIFFICULTY. HEPARIN INFUSING AT 15UNITS/KG/HR PER PHARMACY. PT HAS BEEN NPO SINCE MIDNO. WILL REPORT TO ONCOMING RN WHEN AVAILABLE.
--- NOTE | 2024-02-08 07:57 | NUR ---
ASSUMING CARE ASSUMTION OF CARE AT 0700. IMAGINING AT BEDSIDE AT THIS TIME. CALL LIGHT IN REACH.
[2024-02-08] MEDS ORDERED: Metoprolol Tartrate 25 MG Tab PO SCH (08:30)
[2024-02-08] MEDS ORDERED: DULoxetine HCL 60 MG Capsule DR PO SCH (09:00)
[2024-02-08] MEDS ORDERED: Atorvastatin 40 MG Tab PO SCH (09:00)
[2024-02-08] MEDS ORDERED: Aspirin 81 MG Chew PO SCH (09:00)
[2024-02-08] MEDS ORDERED: NiCARdipine HCL 1,000 MCG/5 ML SYR ONE (09:23)
[2024-02-08] MEDS ORDERED: Heparin Sodium 1000 Units/ML 10ML MDV ONE ×2 (09:23→10:16)
[2024-02-08] MEDS ORDERED: NS 1,000 ML IV ONE ×2 (09:23→09:43)
[2024-02-08] MEDS ORDERED: Nitroglycerin 2 MG/20 ML BTL ONE (09:23)
[2024-02-08] MEDS ORDERED: NS 250 ML IV ONE (09:23)
[2024-02-08] MEDS ORDERED: Midazolam HCl 1MG / ML 2ML Vial ONE ×2 (09:43→10:22)
[2024-02-08] MEDS ORDERED: FentaNYL Citrate 50 MCG/ML 2 ML Injection ONE ×2 (09:43→10:22)
[2024-02-08] MEDS ORDERED: Clopidogrel Bisulfate 300 MG Cap ONE (10:09)
--- NOTE | 2024-02-08 10:25 | NUR ---
NURSE DENNYS KAY OUT OF ROOM AT [facility].
[2024-02-08] MEDS ORDERED: NS 1,000 ML IV SCH (10:50)
[2024-02-08] MEDS ORDERED: NS 250 ML IV PRN (14:35)
--- NOTE | 2024-02-08 18:50 | NUR ---
SHIFT SUMMARY PT TR BAND RECOVERED, NO SIGNS OF BLEEDING, PT DENIES PAIN AT SIGHT. SIGHT FREE OF REDNESS OR HEMATOMA. VSS STABLE. PT IS ON ROOM AIR. PT ABLE TO REPOSTION SELF IN BED, AMBULATES TO BATHROOM W/ MIN ASSIST. PT RECIEVED ONE UNIT OF RBC'S W/ NO NOTED ISSUES. PT JIGAR TRANSFUTION WELL. PT CURRENTLY SITTING UP IN BED, LAB AT BEDSIDE FOR LAB DRAW. WILL CONTINUE TO MONITOR UNTIL END OF SHIFT.
--- NOTE | 2024-02-08 18:58 | NUR ---
Pt had red gelatinous bm approx 50 cc; notified Dr Rudolph and Dr Yan. H&H ordered to check post unit of PRBC. Report given to oncoming rn.
[2024-02-08 19:09] LABS: Hematocrit 31.5 % (33.0-51.0); Hemoglobin 9.5 g/dL (11.5-16.0)
--- NOTE | 2024-02-08 22:39 | NUR ---
ASSUMPTION OF CARE/ASSESSMENT: ASSUMED CARE OF PT AT 1900; BEDSIDE REPORT RECIEVED FROM DOT WARNER. PT A&O X 4, STATUS POST ANGIO WITH A R. RADIAL ACCESS SITE THAT IS SOFT, NON-TENDER AND PULSE STRONG. ARMBOARD IN PLACE OVER R. WRIST; PT VERBALIZES EDUCATION REGARDING RECOVER FROM ANGIO. PT STATES CHEST PAIN HAS RESOLVED SINCE PROCEDURE; PT ST ON MONITOR WITH HR 100'S, BP STABLE. CURRENTLY ON RA WITH LUNG SOUNDS CLEAR T/O, DENIES SOB, AND SPO2 94<. TOLERATES PO INTAKE, INDEPENDENT AT BASELINE AND REQUIRES MINIMAL ASSISTANE WITH CORD MANAGEMENT; INDPENDENT ADL'S. PIV TO LAC AND RAC THAT ARE PATENT AND SALINE LOCKED. PT RESTING QUIETLY, BED LOWERED, CALL LIGHT IN REACH/
[2024-02-09] VITALS (7 sets, daily range): BP systolic 101–152; BP diastolic 79–95
[2024-02-09 04:50] LABS: Bun/Creatinine Ratio 17.5 (12.0-20.0); Calcium, Blood 8.4 mg/dL (8.5-10.1); Creatinine, Blood 0.63 mg/dL (0.40-1.00); Potassium, Blood 4.4 mmol/L (3.5-5.5)
--- NOTE | 2024-02-09 06:04 | NUR ---
SHIFT SUMMARY: NO ACUTE CHANGES OVERNIGHT; VSS THROUGHOUT THE SHIFT. PT INDEPENDENT IN ROOM WITH ADL'S, WILL CALL FOR ASSISTANCE NEEDED. ARM BOARD REMAINS IN PLACE OVER R. WRIST; R. RADIAL ACCESS SITE C/D/I AND SOFT, NON-TENDER. NO CHEST PAIN THROUGHOUT THE NIGHT. PT HAD A DIFFICULT TIME SLEEPING THIS SHIFT. BED LOWERED, CALL LIGHT IN REACH.
[2024-02-09 06:14] LABS: BASOPHILS ABSOLUTE AUTO 0.03 K/mm3 (0.00-0.23); BASOPHILS PERCENT AUTO 0 % (0-2); EOSINOPHILS ABSOLUTE AUTO 0.37 K/mm3 (0.00-0.68); EOSINOPHILS PERCENT AUTO 4 % (0-6); Hematocrit 30.9 % (33.0-51.0); Hemoglobin 9.8 g/dL (11.5-16.0); IMMATURE GRAN ABSOLUTE AUTO 0.08 K/mm3 (0.00-0.10); IMMATURE GRAN PERCENT AUTO 1 % (0-1); LYMPHOCYTES ABSOLUTE AUTO 1.71 K/mm3 (0.84-5.20); LYMPHOCYTES PERCENT AUTO 18 % (21-46); MONOCYTES ABSOLUTE AUTO 0.87 K/mm3 (0.16-1.47); MONOCYTES PERCENT AUTO 9 % (4-13); Mean Corpuscular HGB 28.5 pg (26.0-34.0); Mean Corpuscular HGB Conc 31.7 g/dL (31.5-36.5); Mean Corpuscular Volume 90 fL (80-100); Mean Platelet Volume 10.4 fL (9.1-12.4); NEUTROPHILS PERCENT AUTO 68 % (41-73); Platelet Count 304 K/mm3 (150-400); RDW Coefficient Variation 19.5 % (11.7-14.2); RDW Standard Deviation 61.2 fL (35.1-46.3); Red Blood Cell Count 3.44 M/mm3 (3.80-5.20); White Blood Cell Count 9.46 K/mm3 (4.00-11.30)
[2024-02-09] MEDS ORDERED: Aspirin 81 MG TabEC PO SCH (09:00)
[2024-02-09] MEDS ORDERED: Clopidogrel Bisulfate 75 MG Tab PO SCH (09:00)
[2024-02-09] MEDS ORDERED: Psyllium 1 EA Pack PO SCH (09:00)
[2024-02-09] MEDS ORDERED: Metoprolol Tartrate 50 MG Tab PO SCH (09:00)
--- NOTE | 2024-02-09 12:28 | NUR ---
ASSUMPTION OF CARE: ASSUMED CARE OF PT AROUND 0750. PT ALERT AND ORIETNED, SHE IS CALM, COOPERATIVE TO CARE. SKIN INTACT NO BREAKDOWN NOTED. SINUS RHYTHM 80'S WITH FREQUENT RUNS OF SVT. SBP SOFT IN THE 100'S, PT STATES NORMAL, DENIES CP/PRESSURE. SHE REPORTS NEUROPATHY OF THE LEFT HAND AND FOOT. L/S CLEAR T/O, O2 >92% ON RA, PRN BREATHING TREATMENTS. +BS, NO TENDERNESS/PAIN ON PALPATION. SHE REPORTS DIZZINESS WITH EXERTION, BUT IMPROVED FROM YESTERDAY. PROVIDER AT BEDSIDE THIS AM TO DISCUSS PLAN OF CARE WITH PT. HEPARIN DRIP D/C AT 0914. PT TO START METOPROLOL THS MORNING, AND ELIQUIS THIS EVENING. PLAN FOR ATLEAST ONE MORE NIGHT STAY. PT AGREEABLE TO PLAN. PTS DAUGHTERS QUESTIONS AND ANSWERED. WILL MONITOR PT.
[2024-02-09] MEDS ORDERED: Peg/Electrolytes 4,000 ML BTL PO ONE (13:40)
[2024-02-09 13:46] LABS: Hematocrit 27.2 % (33.0-51.0); Hemoglobin 8.6 g/dL (11.5-16.0)
--- NOTE | 2024-02-09 16:24 | NUR ---
ASSUMPTION OF CARE: PT ALERT AND ORIENTED. SHE IS COOPERATIVE TO CARE, OBEYS COMMANDS. SBA FOR CORDS MANAGMENT. SKIN INTACT, NO BREAKDOWN NOTED. HR IN THE 90'S WITH PVC'S. SHE DENIES ANY CHEST PAIN/PRESSURE, NUMB/TINGLING. BP STABLE. O2 >92% ON RA, SHE DENIES SOB. +BS, NO PAIN OR TENDERNESS ON PLAPATION. PT REPORTS BLOOD IN STOOL, HEMMORRHOIDS FOR 30+ YEARS, BLEEDING WITH BM X2 YEARS, MD NOTIFIED. SURGEON AT BEDSIDE DISCUSSED PLAN OF CARE WITH PT. PLAN FOR COLONSCOPY FOR TOMORROW. PT SWITCHED TO CLEAR LIQUID DIET AND WILL START GOLYTELY BOWEL PREP FOR PROCEDURE THIS EVENING. PTS QUESTIONS AND CONCERNS ANSWERED, WILL CONTINUE TO MONITOR.
--- NOTE | 2024-02-09 18:24 | NUR ---
SHIFT SUMMARY: PT ALERT AND ORIETNED. VSS. O2 >92% ON RA. PT REMAINS FREE OF CP THROUGHOUT SHIFT. PT WITH ANOTHER BLOODY STOOL THIS SHIFT. SURGEON CONSULTED, PLAN TO COMPLETE COLONOSCOPY TOMORROW AFTERNOON. PT NOW ON CLEAR LIQUID DIET UNTIL AFTER PROCEDURE. GOLYTELY BOWEL PREP STARTED AROUND 1800. NO ACUTE CHANGES, WILL MONITOR PT AND REPORT TO MANAGEMENT MANAGER NURSE.
[2024-02-10] VITALS (25 sets, daily range): BP systolic 65–150; BP diastolic 31–110
[2024-02-10 03:52] LABS: BASOPHILS ABSOLUTE AUTO 0.02 K/mm3 (0.00-0.23); BASOPHILS PERCENT AUTO 0 % (0-2); EOSINOPHILS ABSOLUTE AUTO 0.25 K/mm3 (0.00-0.68); EOSINOPHILS PERCENT AUTO 3 % (0-6); Hematocrit 24.8 % (33.0-51.0); Hemoglobin 7.9 g/dL (11.5-16.0); IMMATURE GRAN ABSOLUTE AUTO 0.07 K/mm3 (0.00-0.10); IMMATURE GRAN PERCENT AUTO 1 % (0-1); LYMPHOCYTES PERCENT AUTO 21 % (21-46); MONOCYTES ABSOLUTE AUTO 0.77 K/mm3 (0.16-1.47); MONOCYTES PERCENT AUTO 10 % (4-13); Mean Corpuscular HGB 28.3 pg (26.0-34.0); Mean Corpuscular HGB Conc 31.9 g/dL (31.5-36.5); Mean Corpuscular Volume 89 fL (80-100); Mean Platelet Volume 10.1 fL (9.1-12.4); NEUTROPHILS ABSOLUTE AUTO 4.85 K/mm3 (1.96-9.15); NEUTROPHILS PERCENT AUTO 64 % (41-73); Platelet Count 272 K/mm3 (150-400); RDW Coefficient Variation 19.7 % (11.7-14.2); RDW Standard Deviation 59.7 fL (35.1-46.3); Red Blood Cell Count 2.79 M/mm3 (3.80-5.20); White Blood Cell Count 7.56 K/mm3 (4.00-11.30)
[2024-02-10 04:08] LABS: Bun/Creatinine Ratio 14.7 (12.0-20.0); Calcium, Blood 8.3 mg/dL (8.5-10.1); Creatinine, Blood 0.61 mg/dL (0.40-1.00); Potassium, Blood 3.9 mmol/L (3.5-5.5)
--- NOTE | 2024-02-10 04:26 | NUR ---
PHYSICIAN CONTACT NOTIFIED RESIDENT OF HGB OF 7.9 AND GOAL HGB OF 10. AWAITING ORDERS AT THIS TIME. PT REPORTS CONTINUED BLOOD WITH BOWEL MOVEMENTS.
--- NOTE | 2024-02-10 05:37 | NUR ---
SHIFT SUMMARY PT A&O X4, ABLE TO MAKE NEEDS KNOWN. VSS, AFEBRILE, SPO2 >90% ON RA. SHE DENIES SOB OR CP AT THIS TIME. PT EXPRESSED FRUSTRATION REGARDING CLEAR LIQUID DIET AND BOWEL PREP PRIOR TO COLONOSCOPY ON 02/09 AND REQUESTS THAT STAFF ONLY ENTER HER ROOM WHEN SHE REQUESTS. PT COOPERATIVE WITH ROUTINE CARE. SHE IS INDEPENDENT IN ROOM. BOWEL PREP STARTED ON 02/08 AT APPROXIMATELY 1800, FINISHED AROUND MIDNIGHT. PT REPORTS CONTINUED BLOOD WITH BOWEL MOVEMENTS. HGB OF 7.9 THIS AM, 1 UNIT PRBC TRANSFUSING DUE TO GOAL HGB OF 10. PLAN FOR F/U CBC 1 HOUR POST TRANSFUSION. SHE IS RESTING QUIETLY IN BED, CALL LIGHT IN REACH, BREATHING EVEN AND UNLABORED.
--- NOTE | 2024-02-10 10:27 | NUR ---
AM NOTES; PT AWAITING FOR SCOPE TO BE DONE TODAY PT STILL HAS RED BLOODY STOOLS, MD IS AWARE. ORDER TO HOLD PLAVIX AND ASPIRIN THIS MORNING. PT RECEIVED 1PRBC FOLLOW UP LAB CBC PENDING AT THIS TIME. PT DENIES ANY CHEST PAIN, NO NAUSEA OR ABD PAIN. PT HAS BEEN A&O X4 COOPERATIVE WITH CARES VITALS HRR SR 80'S, SBP 115'S, SATS ABOVE 95% ON RA AFEBRILE. PT HAS BEEN INDEPENDENT IN THE ROOM. PT KEPT NPO FOR THE PROCEDURE. WILL CONTINUE TO MONITOR
[2024-02-10 10:39] LABS: BASOPHILS ABSOLUTE AUTO 0.04 K/mm3 (0.00-0.23); BASOPHILS PERCENT AUTO 1 % (0-2); EOSINOPHILS ABSOLUTE AUTO 0.26 K/mm3 (0.00-0.68); EOSINOPHILS PERCENT AUTO 4 % (0-6); Hematocrit 30.7 % (33.0-51.0); Hemoglobin 9.7 g/dL (11.5-16.0); IMMATURE GRAN ABSOLUTE AUTO 0.06 K/mm3 (0.00-0.10); IMMATURE GRAN PERCENT AUTO 1 % (0-1); LYMPHOCYTES ABSOLUTE AUTO 1.37 K/mm3 (0.84-5.20); LYMPHOCYTES PERCENT AUTO 20 % (21-46); MONOCYTES PERCENT AUTO 13 % (4-13); Mean Corpuscular HGB 28.5 pg (26.0-34.0); Mean Corpuscular HGB Conc 31.6 g/dL (31.5-36.5); Mean Corpuscular Volume 90 fL (80-100); Mean Platelet Volume 10.4 fL (9.1-12.4); NEUTROPHILS ABSOLUTE AUTO 4.38 K/mm3 (1.96-9.15); NEUTROPHILS PERCENT AUTO 63 % (41-73); Platelet Count 262 K/mm3 (150-400); RDW Standard Deviation 56.6 fL (35.1-46.3); White Blood Cell Count 7.01 K/mm3 (4.00-11.30)
[2024-02-10] MEDS ORDERED: propofoL 60 ML IV ONE (12:54)
[2024-02-10] MEDS ORDERED: Lactated Ringer's 1,000 ML IV SCH (12:55)
--- NOTE | 2024-02-10 12:57 | NUR ---
PT HAS 2 20G IVS, ONE TO EACH FOREARM. BOTH IVS FLUSH WELL AND FLOW TO GRAVITY.
--- NOTE | 2024-02-10 13:01 | NUR ---
PT TO SDS WITH WC, PT AXOX4, LUNGS CLEAR BILAT TO AUSCULTATION, 20G IV IN L ACT THAT FLUSHES AND FLOWS WELL TO GRAVITY, SHOWS NO SIGNS OF INFILTRATION.
--- NOTE | 2024-02-10 13:02 | NUR ---
PT CURRENTLY TAKEN FOR SCOPE PROCEDURE AT THIS TIME
[2024-02-10] MEDS ORDERED: Ondansetron HCl 2 MG / ML 2ML Vial ONE (13:07)
[2024-02-10] MEDS ORDERED: propofoL 20 ML IV ONE (13:07)
--- NOTE | 2024-02-10 13:30 | NUR ---
02/10/24 1330 Tim Choe MONITOR INTACT WITH CONTINUOUS PULSE OXIMETRY, CONTINUOUS END TITAL CO2, AND INTERMITTENT BLOOD PRESSURE.AND EKG MAC PER DR. PARR
--- NOTE | 2024-02-10 14:17 | NUR ---
Pt returned to room following sigmoidoscopy which was all that could be done, not the complete colonoscopy per report from ALANA Dumont. She is having a lot of cramping and nausea. V/s taken, noted stable. She is moaning in pain, doubled over and states that a hot shower will help her discomfort. PCT is helping her with that right now.
[2024-02-10] MEDS ORDERED: Metoclopramide HCl 5MG / ML 2ML Vial IV PRN (15:40)
[2024-02-10] MEDS ORDERED: NS 1,000 ML IV ONE (17:15)
[2024-02-10] MEDS ORDERED: FentaNYL Citrate 50 MCG/ML 2 ML Injection IV PRN (17:20)
--- NOTE | 2024-02-10 18:02 | NUR ---
PT SUMMARY; PT CAME BACK FROM SCOPE PROCEDURE AT APPROX 1400, PER REPORT PROCEDURE WAS NOT FULLY COMPLETED AND PT WAS ALSO HAVING BAD CRAMPS, PT WAS RETURNED BACK INTO THE ROOM NO INTERVENTION DONE. WHEN PT GOT BACK IN THE ROOM PT CONTINUES TO COMPLAIN OF REALLY BAD CRAMPS AND NAUSEA REGLAN WAS GIVEN AND DIDNT HELP WITH THE CRAMPS PT REQUESTED SOMETHING FOR ANXIETY ATIVAN 1MG WAS GIVEN PT CALM DOWN FOR A LITTLE BIT, PT REQUESTED TO SHOWER HAS BEEN IN AND OUT OF THE BATHROOM PT STILL HAVING BLOODY STOOLS, BLOOD PRESSURE ALSO DROPPED INTO THE 60-80'S SYSTOLIC WITH MAP 40-50'S, BOLUS STARTED DR CUMMINGS MADE AWARE FENTANYL WAS ORDERED AND GIVEN PT REPORTED SOME RELIEF, HOT COMPRESS PROVIDED WELL. DR CUMMINGS WAS ABLE TO DISCUSS PLAN WITH DR ANTON LEON PLANS FOR SCOPE AT THIS TIME TO MONITOR H&H AND TRANSFUSE NEEDED, PT HAS DIVERTICULOSIS PER DR CUMMINGS HOPEFULLY IT WILL RESOLVE ON ITS OWN AND WAIT FOR AN ACTUAL GI PROVIDER TO DO THE SCOPE. BOLUS STILL INFUSING AT THSI TIME SBP NOW ON THE 100-110'S MAP >60'S, AWAITING FOR REPEAT H&H RESULT. SATS ABOVE 95% ON RA, HRR REMAINED SR 80'S, AFEBRILE. WILL MONITOR UNTIL END OF SHIFT
[2024-02-10 18:15] LABS: Hematocrit 32.2 % (33.0-51.0); Hemoglobin 10.2 g/dL (11.5-16.0)
--- NOTE | 2024-02-10 21:30 | NUR ---
PROVIDER NOTIFIED OF PT'S DIFFUE RADHA PAIN, BRIGHT RED BLEEDING PALE GUMS AND RECENT VITALS. STATED WILL COME TO BEDSIDE.
[2024-02-10 22:25] LABS: Hematocrit 30.1 % (33.0-51.0); Hemoglobin 9.7 g/dL (11.5-16.0)
--- NOTE | 2024-02-10 22:47 | NUR ---
UPDATE PT FELL THIS SHIFT, WAS FOUND ON GROUND ON KNEES BY ALANA HAWKINS. PT DENIES HITTING HER HEAD, SHE DENIES PAIN. VSS. PROVIDER, DATA CONTROL CLERK SUPERVISOR, AND SEAT COVERS TRIMMER NOTIFIED. PT IS RESTING IN BED, BED ALARM ON FOR SAFETY, CALL LIGHT IN REACH.
--- NOTE | 2024-02-10 22:50 | NUR ---
UPDATE NOTIFIED RESIDENT OF EKG, HGB, AND TROPONIN RESULTS. NO NEW ORDERS AT THIS TIME. PT IS RESTING IN BED, CALL LIGHT IN REACH, BREATHING EVEN AND UNLABORED.
[2024-02-11] VITALS (12 sets, daily range): BP systolic 89–111; BP diastolic 62–83
[2024-02-11 03:56] LABS: Hematocrit 26.8 % (33.0-51.0); Hemoglobin 8.7 g/dL (11.5-16.0); Mean Corpuscular HGB 28.5 pg (26.0-34.0); Mean Corpuscular HGB Conc 32.5 g/dL (31.5-36.5); Mean Corpuscular Volume 88 fL (80-100); Mean Platelet Volume 9.7 fL (9.1-12.4); Platelet Count 239 K/mm3 (150-400); RDW Coefficient Variation 19.2 % (11.7-14.2); Red Blood Cell Count 3.05 M/mm3 (3.80-5.20); White Blood Cell Count 13.27 K/mm3 (4.00-11.30)
--- NOTE | 2024-02-11 04:40 | NUR ---
PHYSICIAN CONTACT NOTIFIED RESIDENT OF HGB 8.7 WITH GOAL OF 10 AND HR OF 120'S-130'S. AWAITING ORDERS.
--- NOTE | 2024-02-11 05:13 | NUR ---
SHIFT SUMMARY PT A&O X4, ABLE TO MAKE NEEDS KNOWN. VSS, AFEBRILE, SPO2 >90% ON RA. SHE DENIES SOB OR CP AT THIS TIME. PT COOPERATIVE WITH CARE. PT IS QUITE PAINFUL THIS SHIFT POST COLONOSCOPY ON 02/09, SHE WAS PROVIDED WITH HEAT AND COLD PACKS TO HELP MANAGE THE PAIN, MEDICATED PER EMAR. SHE CONTINUES TO HAVE BLOODY BOWEL MOVEMENTS. PLAN FOR 1 UNIT PRBC THIS AM. SHE IS NOW RESTING QUIETLY IN BED, CALL LIGHT IN REACH, BREATHING EVEN AND UNLABORED.
--- NOTE | 2024-02-11 09:19 | NUR ---
BSR FROM [facility] AT 0700, PT'S UNIT OF BLOOD INFUSING IN THE RIGHT A/C. PT UNSETTLED, RESTLESS. MOVES BAG OF ICE FROM FRONT TO BACK TO HEAD TO STOMACH. HEATING PAD IN USE WELL, PT MOANS SHE BREATHES. PT STATES HER PAIN IS 6/10 BUT REFUSED THE CLEAR LIQUID TRAY, REQUESTED TO HAVE KOREAN TOAST AND SAUSAGE. IN TO SEE THE PATIENT, NO NEW ORDERS. BP REMAINS STABLE, HEART RATE ELEVATED. LUNGS CLEAR, NO EDEMA, SCD'S IN USE, ABDOMEN HYPOACTIVE. REQUESTS PAIN MEDICATION. REQUESTS A NAP WHILE CONTINUING TO MOAN AND GRUNT IN PAIN.
--- NOTE | 2024-02-11 09:26 | NUR ---
PT IN ROOM MOANING AND CRYING OUT. SHE HAS CALL LIGHT, IS NOT REQUESTING ANY ASSISTANCE, JUST CRYING OUT. HAD BEEN MEDICATED, TOOK IN SOME BREAKFAST AND HER IV LINE FLUSHED AT COMPLETION OF BLOOD PRODUCTS, REQUESTED TIME TO NAP. NOW CRYING OUT HEARD AUDIBLY THROUGH THE CLOSED DOOR.
--- NOTE | 2024-02-11 09:39 | NUR ---
WENT IN TO CHECK ON PRACHI, SEE IF THERE WAS SOMETHING THAT CAN HELP. SHE STATED SHE WAS HAVING AN ANXIETY ATTACK AND THAT SHE JUST NEEDED TIME, SHE WAS CONCERNED THAT SHE COULD BE HEARD OUTSIDE OF HER ROOM AND DIDN'T WANT TO BOTHER ANYONE ELSE. SHE DECLINED THIS RN FROM CALLING ANYONE FOR HER.
[2024-02-11 10:36] LABS: Hematocrit 28.6 % (33.0-51.0); Hemoglobin 9.5 g/dL (11.5-16.0)
--- NOTE | 2024-02-11 14:46 | NUR ---
PRACHI WAS INFORMED AROUND LUNCHTIME THAT [facility] IN [place] HAD ACCEPTED HER A PATIENT. WHEN SHE WAS TOLD OF THIS SHE SAID SHE CHANGED HER MIND. DR. CUMMINGS WAS NOTIFIED OF HER CHANGE. PT THEN SPOKE WITH HER AND ASKED THAT SHE BE ABLE TO GO TO [place] [employer] AFTERALL. SHE IS TEARFUL AND ADMITTEDLY ANXIOUS. SHE STATES THAT SHE WILL BE ALL ALONE OVER THERE BUT THAT HER DOES WANT HER TO GO. HAS BEEN MADE AWARE OF THIS DECISION. AWAIT A BED FOR HER AT [facility].
[2024-02-11 15:01] LABS: Hematocrit 30.2 % (33.0-51.0); Hemoglobin 9.8 g/dL (11.5-16.0)
--- NOTE | 2024-02-11 18:30 | NUR ---
HEARD THAT THERE IS A BED AVAILABLE AT [facility], TRANSPORT SHOULD BE HERE ANY MOMENT. PT'S FAMILY HERE ASSISTING IN PACKING AND SAYING GOODBYE. PT HAS BEEN UP TO THE BR COUPLE OF TIMES TODAY, UNMEASURED AND PT FLUSHES PRIOR TO ASSISTANCE. NO VISIBLE SIGNS OF BLEEDING, DEPEND UNDERGARMENT REMAINS C/D. PT HAS BEEN ACTIVELY EATING TODAY, THIS EVENING HAD A CHEESEBURGER, SALAD AND SOME TACOS. PT TAKING IN FLUIDS. KEEPS HER ICE BAG CLOSE BY, REFILLED OFTEN T/O THE DAY. WILL CALL REPORT TO [facility] WHEN PATIENT IS PACKED AND READY. CARE WILL BE TO DR.ALANNA SNYDER AND PT IS GOING TO ROOM 8203 AT [facility] IN [place]. FAMILY IS PROVIDED THIS INFORMATION.
--- NOTE | 2024-02-11 19:22 | NUR ---
PRACHI WAS MOVED TO THE [facility] WITH ASSISTANCE WHEN TRANSPORT ARRIVED. GIVEN 1 MG OF ATIVAN PER MAR FOR HER ANXIETY. SHE HAD IMMEDIATELY BEGAN TO CRY WHEN SHE SAW THE GENTLEMAN FOR TRANSPORT. SHE WAS GIVEN POSITIVE AFFIRMATION AND ENCOURAGEMENT. SHE WAS TAKING AN ICE BAG WITH HER AND THE MEDICS ASKED THAT SHE NOT DRINK EN ROUTE TO THE HOSPITAL, WHICH PRACHI EXPRESSED HER DISPLEASURE WITH. AND DAUGHTER FOLLOWED HER TO THE AMBULANCE WITH ALL OF HER PERSONAL BELONGINGS. SHE WAS WEARING HER BROWN ROBE AND BROWN SLIPPERS. REPORT CALLED TO [facility]IT[facility] AT [facility] IN [place].
== END 2024-02-11 19:28 | disposition short-term general hospital (02) | DRG 322 ==
LOC: ER 14:51 → PCU 18:10
PROVIDERS: Emergency Medicine; Family Medicine; Internal Medicine; Internal Medicine Cardiovascular Disease; Nurse Practitioner Acute Care; Physician Assistant; Student in an Organized Health Care Education/Training Program; ADMIT Student in an Organized Health Care Education/Training Program
PROC: 027034Z Dilation of Coronary Artery, One Artery with Drug-eluting Intraluminal Device, Percutaneous Approach (ICD-10-PCS; 2024-02-08)
PROC: 4A023N7 Measurement of Cardiac Sampling and Pressure, Left Heart, Percutaneous Approach (ICD-10-PCS; 2024-02-08)
PROC: B2111ZZ Fluoroscopy of Multiple Coronary Arteries using Low Osmolar Contrast (ICD-10-PCS; 2024-02-08)
PROC: B2151ZZ Fluoroscopy of Left Heart using Low Osmolar Contrast (ICD-10-PCS; 2024-02-08)
PROC: 0DJD8ZZ Inspection of Lower Intestinal Tract, Via Natural or Artificial Opening Endoscopic (ICD-10-PCS; 2024-02-10)
PROC: 30233N1 Transfusion of Nonautologous Red Blood Cells into Peripheral Vein, Percutaneous Approach (ICD-10-PCS; principal; 2024-02-11)
DX: I21.4 Non-ST elevation (NSTEMI) myocardial infarction (principal); D62 Acute posthemorrhagic anemia; K92.2 Gastrointestinal hemorrhage, unspecified; K64.8 Other hemorrhoids; G47.33 Obstructive sleep apnea (adult) (pediatric); I50.9 Heart failure, unspecified; I11.0 Hypertensive heart disease with heart failure; F43.10 Post-traumatic stress disorder, unspecified; F41.9 Anxiety disorder, unspecified; K21.9 Gastro-esophageal reflux disease without esophagitis; I25.10 Atherosclerotic heart disease of native coronary artery without angina pectoris; F17.210 Nicotine dependence, cigarettes, uncomplicated; E78.5 Hyperlipidemia, unspecified; Z71.6 Tobacco abuse counseling; Z99.89 Dependence on other enabling machines and devices; Z98.890 Other specified postprocedural states; Z86.73 Personal history of transient ischemic attack (TIA), and cerebral infarction without residual deficits; Z95.5 Presence of coronary angioplasty implant and graft; Z88.8 Allergy status to other drugs, medicaments and biological substances; Z79.82 Long term (current) use of aspirin; Z79.899 Other long term (current) drug therapy
CPT/HCPCS: 36415; 36430; 71046; 71260; 76937; 80048; 80053; 80061; 81003; 82010; 82728; 82803; 83036; 83540; 83550; 83605; 83690; 83735; 83880; 84484; 85014; 85018; 85025; 85027; 85347; 85379; 85520; 85610; 85730; 86850; 86900; 86901; 86923; 93005; 93010; 93306; 93454; 94760; 94762; 99152; 99153; 99285-25; A9270; C1725; C1769; C1874; C1887; C1894; C9600; G0480; J1644; J2060; J2250; J2405; J2704; J2765; J3010; J7030; J7050; P9016; Q9967

== ENCOUNTER 2024-02-29 16:04 | Inpatient (IN) | payer OTHER ==
[~2024-02-29] VITALS: Ht 167.6 cm; Wt 63.5 kg
[2024-02-29 16:44] LABS: BASOPHILS ABSOLUTE AUTO 0.08 K/mm3 (0.00-0.23); BASOPHILS PERCENT AUTO 1 % (0-2); EOSINOPHILS ABSOLUTE AUTO 0.01 K/mm3 (0.00-0.68); EOSINOPHILS PERCENT AUTO 0 % (0-6); Hematocrit 32.4 % (33.0-51.0); Hemoglobin 10.5 g/dL (11.5-16.0); IMMATURE GRAN ABSOLUTE AUTO 0.47 K/mm3 (0.00-0.10); IMMATURE GRAN PERCENT AUTO 3 % (0-1); LYMPHOCYTES ABSOLUTE AUTO 1.78 K/mm3 (0.84-5.20); LYMPHOCYTES PERCENT AUTO 11 % (21-46); MONOCYTES ABSOLUTE AUTO 1.96 K/mm3 (0.16-1.47); MONOCYTES PERCENT AUTO 12 % (4-13); Mean Corpuscular HGB 29.9 pg (26.0-34.0); Mean Corpuscular HGB Conc 32.4 g/dL (31.5-36.5); Mean Corpuscular Volume 92 fL (80-100); NEUTROPHILS ABSOLUTE AUTO 12.34 K/mm3 (1.96-9.15); NEUTROPHILS PERCENT AUTO 74 % (41-73); Platelet Count 780 K/mm3 (150-400); RDW Coefficient Variation 18.9 % (11.7-14.2); RDW Standard Deviation 63.8 fL (35.1-46.3); Red Blood Cell Count 3.51 M/mm3 (3.80-5.20); White Blood Cell Count 16.64 K/mm3 (4.00-11.30)
[2024-02-29 17:07] LABS: Albumin, Blood 2.6 g/dL (3.4-5.0); Albumin/Globulin Ratio 0.5 (0.8-1.8); Bilirubin, Total 0.4 mg/dL (0.1-1.0); Bun/Creatinine Ratio 10.7 (12.0-20.0); Calcium, Blood 9.4 mg/dL (8.5-10.1); Creatinine, Blood 0.84 mg/dL (0.40-1.00); Globulin, Blood 4.9 g/dL (2.2-4.0); Potassium, Blood 3.9 mmol/L (3.5-5.5); Total Protein, Blood 7.5 g/dL (6.4-8.2)
[2024-02-29 21:39] LABS: Influenza A, PCR NEGATIVE (NEGATIVE); Influenza B, PCR NEGATIVE (NEGATIVE); Resp Syncytial Virus, PCR NEGATIVE (NEGATIVE); SARS-Cov-2 (COVID-19) PCR, MMC NEGATIVE (NEGATIVE)
[2024-02-29 22:10] LABS: Prothrombin Time Results 10.7 Sec (9.7-11.5)
[2024-02-29] MEDS ORDERED: Piperacillin/Tazobactam Sod 4.5 GM in NS 100 ML IV ONE (23:00)
[2024-02-29] MEDS ORDERED: HYDROmorphone HCl/Pf 1MG SYR IV ONE (23:20)
[2024-02-29] MEDS ORDERED: Lidocaine 2% Jelly Uro-Jet UR ONE (23:50)
[2024-03-01] MEDS ORDERED: Ondansetron HCl 2 MG / ML 2ML Vial IV PRN (00:30)
[2024-03-01] MEDS ORDERED: FLU VACC TS2024-25(6MOS UP)/PF 45 MCG/0.5 ML SYRINGE IM SCH (00:30)
[2024-03-01] MEDS ORDERED: FentaNYL Citrate 50 MCG/ML 2 ML Injection IV PRN ×2 (00:35→22:05)
[2024-03-01] MEDS ORDERED: NS 1,000 ML IV SCH (00:35)
[2024-03-01 01:25] LABS: BASOPHILS ABSOLUTE AUTO 0.06 K/mm3 (0.00-0.23); BASOPHILS PERCENT AUTO 1 % (0-2); EOSINOPHILS PERCENT AUTO 1 % (0-6); Hematocrit 31.3 % (33.0-51.0); Hemoglobin 10.2 g/dL (11.5-16.0); IMMATURE GRAN ABSOLUTE AUTO 0.36 K/mm3 (0.00-0.10); IMMATURE GRAN PERCENT AUTO 3 % (0-1); LYMPHOCYTES ABSOLUTE AUTO 1.57 K/mm3 (0.84-5.20); LYMPHOCYTES PERCENT AUTO 12 % (21-46); MONOCYTES ABSOLUTE AUTO 1.87 K/mm3 (0.16-1.47); MONOCYTES PERCENT AUTO 15 % (4-13); Mean Corpuscular HGB 30.1 pg (26.0-34.0); Mean Corpuscular HGB Conc 32.6 g/dL (31.5-36.5); Mean Corpuscular Volume 92 fL (80-100); Mean Platelet Volume 10.2 fL (9.1-12.4); NEUTROPHILS ABSOLUTE AUTO 8.78 K/mm3 (1.96-9.15); NEUTROPHILS PERCENT AUTO 69 % (41-73); Platelet Count 779 K/mm3 (150-400); RDW Coefficient Variation 19.2 % (11.7-14.2); RDW Standard Deviation 64.7 fL (35.1-46.3); Red Blood Cell Count 3.39 M/mm3 (3.80-5.20); White Blood Cell Count 12.74 K/mm3 (4.00-11.30)
[2024-03-01 01:47] LABS: Albumin, Blood 2.5 g/dL (3.4-5.0); Albumin/Globulin Ratio 0.6 (0.8-1.8); Bilirubin, Total 0.4 mg/dL (0.1-1.0); Bun/Creatinine Ratio 12.3 (12.0-20.0); Calcium, Blood 9.4 mg/dL (8.5-10.1); Creatinine, Blood 0.73 mg/dL (0.40-1.00); Globulin, Blood 4.5 g/dL (2.2-4.0); Potassium, Blood 4.8 mmol/L (3.5-5.5)
--- NOTE | 2024-03-01 10:12 | NUR ---
REPORT RECIEVED FROM ED NURSE AT 1008.
[2024-03-01] MEDS ORDERED: CLOP75 PO (10:18)
[2024-03-01] MEDS ORDERED: OXAYDO5 M1 PO (10:20)
[2024-03-01 10:47] VITALS: BP 131/98
--- NOTE | 2024-03-01 13:03 | NUR ---
THIS RN CONTACTED BY IMAGING AND NOTIFIED THAT THE NG TUBE IS NOT ADVANCED FAR ENOUGH. THIS RN TO IMAGING AT 1245 TO ADVANCE NG TUBE ANOTHER 6 CM. XRAY CONFIRMED PLACEMENT..
[2024-03-01 14:46] VITALS: BP 142/98
--- NOTE | 2024-03-01 16:55 | NUR ---
PT DANE CONTACTED AND UPDATED BY THIS RN
--- NOTE | 2024-03-01 19:18 | NUR ---
ARRIVAL TO UNIT/SHIFT SUMMARY PT ARRIVED TO PCU ROUGHLY 1030. PT A/OX4. PT ON RA. NG TUBE IN PLACE AT TIME OF ARRIVAL. PT HAS OSTOMY AND MJ DRAINS IN PLACE AT TIME OF ARRIVAL. INCISION MID ABD WITH SECTION DEHISCING JUST BELOW UMBILICA, PHOTOS IN CHART, MD AND SURGEON NOTIFIED WHEN THEY WERE AT BEDSIDE. PT WENT TO XRAY FOR SBO TRST, SEE CHART FOR RESULTS. APPROVED ICE CHIPS FOR PT WHILE NG IS CONNECTED TO INTERMIT SUCTION. PT HAD PWERGLIDE PLACED TO MILADIS AFTER IV WAS REMOVED FOR LEAKING. DAUGHTER UPDATED.
[2024-03-01 20:11] VITALS: BP 135/89
--- NOTE | 2024-03-01 22:44 | NUR ---
PT STATUS CALLED HOSPITALIST. PT STATES PAIN IS NOT WELL CONTROLLED. NEW BREAKTHROUGH PAIN RX ORDERS ENTERED INTO EMAR. SHE DENIES NAUSEA AT THIS TIME. PT STATES HER SIGMOID COLECTOMY SURGICAL SITE IS SPLITTING OPEN (DEHISSED) AND A SMALL AMOUNT OF SEROSANGUINOUS DRAINAGE IS NOTED BY ME. DAY HOSPITALIST AND CONSULT WERE MADE AWARE OF THIS ON DAY SHIFT. SHE IS VERY CONCERNED THAT IT WAS LEFT OPEN TO AIR. SHE REQUESTED THAT I COVER THE SITE. I DID USE A SIMPLE SMALL ABD PAD.
[2024-03-02 02:59] VITALS: BP 138/92
--- NOTE | 2024-03-02 04:51 | NUR ---
SHIFT SUMMARY ADMITTED FOR SBO. FULL CODE. SHE IS NPO, EXCEPT ICE. POWERGLIDE IN RUE. OSTOMY IN PLACE. TELEMETRY: TACHY @ 124 BPM. NS INFUSING @ 75 ML/HR FOR 1 BAG. BILATERAL FLANK MJ DRAINS IN PLACE. SURGICAL SITE FROM RECENT SIGMOID COLECTOMY APPEARS TO BE DEHISCING, SMALL AMOUNT OF SEROSANGUINOUS DRAINAGE NOTED. HOSPITALIST AND CONSULT ARE AWARE. SURGICAL CONSULT IS DR. WALTON. RECENT NSTEMI ON 02/07/2024 W/STENT. SHE DOES HAVE A HX OF DEBILITATING PTSD W/ANXIETY ATTACKS. I DID NOTE ANXIETY THROUGHOUT SHIFT. SHE DID CALL FREQUENTLY THIS SHIFT, AND I AM NOT SURE THAT SHE SLEPT AT ALL. SHE IS A [facility]. IV PAIN MEDICATION GIVEN THIS SHIFT.
[2024-03-02 06:38] LABS: BASOPHILS ABSOLUTE AUTO 0.04 K/mm3 (0.00-0.23); BASOPHILS PERCENT AUTO 0 % (0-2); EOSINOPHILS ABSOLUTE AUTO 0.08 K/mm3 (0.00-0.68); EOSINOPHILS PERCENT AUTO 1 % (0-6); Hematocrit 30.6 % (33.0-51.0); Hemoglobin 9.8 g/dL (11.5-16.0); IMMATURE GRAN ABSOLUTE AUTO 0.19 K/mm3 (0.00-0.10); IMMATURE GRAN PERCENT AUTO 2 % (0-1); LYMPHOCYTES PERCENT AUTO 12 % (21-46); MONOCYTES ABSOLUTE AUTO 1.65 K/mm3 (0.16-1.47); MONOCYTES PERCENT AUTO 17 % (4-13); Mean Corpuscular HGB 29.8 pg (26.0-34.0); Mean Corpuscular Volume 93 fL (80-100); Mean Platelet Volume 9.9 fL (9.1-12.4); NEUTROPHILS ABSOLUTE AUTO 6.52 K/mm3 (1.96-9.15); NEUTROPHILS PERCENT AUTO 68 % (41-73); Platelet Count 718 K/mm3 (150-400); RDW Coefficient Variation 19.2 % (11.7-14.2); Red Blood Cell Count 3.29 M/mm3 (3.80-5.20); White Blood Cell Count 9.58 K/mm3 (4.00-11.30)
[2024-03-02 06:50] LABS: Bun/Creatinine Ratio 16.8 (12.0-20.0); Calcium, Blood 9.5 mg/dL (8.5-10.1); Creatinine, Blood 0.72 mg/dL (0.40-1.00); Potassium, Blood 3.4 mmol/L (3.5-5.5)
[2024-03-02 07:59] VITALS: BP 140/94
[2024-03-02] MEDS ORDERED: Potassium Chl 20MEQ/Water100ML 100 ML IV STA (10:34)
[2024-03-02 11:48] LABS: Magnesium, Blood 2.2 mg/dL (1.6-2.4); Phosphorus, Blood 3.6 mg/dL (2.5-4.9)
--- NOTE | 2024-03-02 12:23 | NUR ---
DISCUSSED ABD WOUND WITH DR WALTON AT BEDSIDE. OKAY TO D/C NG TUBE, ADVANCE TO CLEAR LIQUIDS. PLACE CALCIUM ALGENATE AND GAUZE OVER TOP OF WOUND. CLEAN WITH WOUND CLEANSE SPRAY NEEDED.
[2024-03-02] MEDS ORDERED: DiphenhydrAMINE HCl 50 MG Cap PO PRN (15:00)
[2024-03-02] MEDS ORDERED: OxyCODONE HCL 5 MG TAB PO PRN (15:00)
--- NOTE | 2024-03-02 15:09 | NUR ---
PT HR PER TELE 140-150. CALLED DR TO REVIEW HOME MEDS. WILL PLACE ORDER.
[2024-03-02] MEDS ORDERED: HyDROXyzine HCl 25 MG Tab PO PRN (15:15)
[2024-03-02 15:41] VITALS: BP 135/80
[2024-03-02] MEDS ORDERED: Carvedilol 6.25 MG Tab PO SCH (16:00)
--- NOTE | 2024-03-02 17:56 | NUR ---
PT PLEASANT TODAY. SOME ANX NOTED. DISCUSSED WITH DR JEFFERY. MEDS ORDERED . DISCUSSED H/R ELEVATED WITH DR Maddie COY MEDS STARTED. PAIN BETTTER UNDER CONTROL THIS JOHNSON PER PT. 2 MJ DRAINS BILAT OF ABD NOTED. MIN S/S FLUID COLLECTIONS. PT HAS OSTOMY DRAIING MINIMAL DARK GREENISH. NG TUBE D/C BY DR WALTON TODAY. CLEAR LIQUID STARTED. ORDERS FOR WOUND CARE. NO OTHER CONCERNS NOTED. BED IN LOW POSITION, CALL LITE IN REACH, CALLS APPROP
[2024-03-02] MEDS ORDERED: Ascorbic Acid 500 MG Tab PO SCH (21:00)
[2024-03-02] MEDS ORDERED: Docusate Sodium 100 MG Cap PO SCH (21:00)
[2024-03-02] MEDS ORDERED: OLANZapine 5 MG Tab PO SCH (21:00)
[2024-03-02] MEDS ORDERED: Atorvastatin 40 MG Tab PO SCH (21:00)
[2024-03-02 21:26] VITALS: BP 134/97
[2024-03-03 03:23] VITALS: BP 143/95
--- NOTE | 2024-03-03 05:25 | NUR ---
SHIFT SUMMARY PT IS ALERT AND ORIENTED TIMES 4 BED. WOUNDS DRAINS WERE FLUSHED EMPTIED, AND MEASURED. COLOSTOMY BAG WAS DRAINED AND MEASURED. SURG SITE ASSESSED AND CLEANED. PER PT REQUEST 50 mcg FENTANLY ADMINISTERED TIMES 2 DURING SHIFT. PT STATED MEDICATION WAS EFFECTIVE. PT COMPLAINED OF PAIN AT ABOUT 0300. ASSESSED SURGICAL SITE. COLOSTOMY WAS LEAKING SLIGHTLY. CLEANED WOUND AREA, CHANGED DRESSING. PT HAD EMESIS EPISODE SHORTLY AFTER. VITALS CHECKED AND BP WAS SLIGHTLY ELEVATED, TEMP WITHIN NORMAL LIMITS. PT APPEARED TO SLEEP SHORTLY AFTER. BED IN LOW POSITION, CALL LIGHT WITHIN REACH, RAILS TIMES 2.
[2024-03-03 07:16] LABS: BASOPHILS ABSOLUTE AUTO 0.04 K/mm3 (0.00-0.23); BASOPHILS PERCENT AUTO 0 % (0-2); EOSINOPHILS ABSOLUTE AUTO 0.02 K/mm3 (0.00-0.68); EOSINOPHILS PERCENT AUTO 0 % (0-6); Hematocrit 31.6 % (33.0-51.0); Hemoglobin 10.3 g/dL (11.5-16.0); IMMATURE GRAN ABSOLUTE AUTO 0.12 K/mm3 (0.00-0.10); IMMATURE GRAN PERCENT AUTO 1 % (0-1); LYMPHOCYTES ABSOLUTE AUTO 1.33 K/mm3 (0.84-5.20); LYMPHOCYTES PERCENT AUTO 9 % (21-46); MONOCYTES PERCENT AUTO 11 % (4-13); Mean Corpuscular HGB 30.3 pg (26.0-34.0); Mean Corpuscular HGB Conc 32.6 g/dL (31.5-36.5); Mean Corpuscular Volume 93 fL (80-100); NEUTROPHILS ABSOLUTE AUTO 12.29 K/mm3 (1.96-9.15); NEUTROPHILS PERCENT AUTO 79 % (41-73); Platelet Count 696 K/mm3 (150-400); RDW Coefficient Variation 18.8 % (11.7-14.2); RDW Standard Deviation 64.8 fL (35.1-46.3)
[2024-03-03 07:25] LABS: Bun/Creatinine Ratio 14.8 (12.0-20.0); Creatinine, Blood 0.88 mg/dL (0.40-1.00); Potassium, Blood 3.7 mmol/L (3.5-5.5)
[2024-03-03 07:46] VITALS: BP 115/79
[2024-03-03] MEDS ORDERED: Aspirin 81 MG Chew PO SCH (09:00)
[2024-03-03] MEDS ORDERED: Megestrol Acetate Susp 400MG/10ML UDC PO SCH (09:00)
[2024-03-03] MEDS ORDERED: Clopidogrel Bisulfate 75 MG Tab PO SCH (09:00)
[2024-03-03] MEDS ORDERED: DULoxetine HCL 60 MG Capsule DR PO SCH (09:00)
[2024-03-03] MEDS ORDERED: Ferrous Sulfate 325 MG Tab PO SCH (09:00)
[2024-03-03 15:44] VITALS: BP 125/84
--- NOTE | 2024-03-03 18:13 | NUR ---
PT IS PLEASANT AND COOP TODAY. ATARAX HAS TAKEN THE EDGE OFF OF THE ANXIETY FOR THE PATIENT. DR WALTON IN TO SEE PT THIS AM. STATES SHE LOOKING WELL. PULLID NG TUBE YESTERDAY. SCANT BM BETWEEN YEST AND TODAY. PT SBA ASST ABOUT ROOM. PATIENT STATES PAIN BETTER TODAY. BED IN LOW POSITION, CALL LITE IN REACH, CALLS APPROP
[2024-03-03 19:52] VITALS: BP 102/70
[2024-03-04 03:13] VITALS: BP 118/83
--- NOTE | 2024-03-04 06:25 | NUR ---
SHIFT SUMMARY PT IS ALERT AND ORIENTED TIMES 4 BED. PT HAD WOUND CLEAN AND DRESSING CHANGE JUST PRIOR TO SHIFT. PT TOOK HS MEDS AND STATED SHE WAS READY TO GET SOME GOOD SLEEP TONIGHT. GAVE PAIN MEDICATION PER PT REQUEST OF SEVERE PAIN. PT TOLERATED WELL AND APPEARED TO SLEEP THROUGH THE NIGHT WITHOUT ISSUE. CHECKED PT BILATERAL DRAINS, MINIMAL DRAINAGE AND CLEAN. OSTOMY DRESSING IS CLEAN AND NOT LEAKING. BED IN LOW POSITION, CALL LIGHT WITHIN REACH, RAILS TIMES 2.
[2024-03-04 07:21] VITALS: BP 110/76
[2024-03-04] MEDS ORDERED: CARV6.25 PO (13:05)
--- NOTE | 2024-03-04 15:12 | NUR ---
DISCHARGE SUMMARY: A&Ox4. PLEASANT AND COOPERATIVE WITH CARE. CALLS APPROPRIATELY AND IS ABLE TO ADVOCATE NEEDS EFFECTIVELY. AMBULATES INDEPENDENTLY WITHIN ROOM AND SBA OTHERWISE. CONTINENT OF URINE; COLOSTOMY PATENT WITH FORMED BROWN STOOL. MEDS WHOLE WITH FLUIDS. TELE SINUS TACH WITH PVCs AND PACs ~118. PAIN WELL-CONTROLLED UNTIL IT CAME TIME TO REMOVE DRAINS AT WHICH TIME SHE HAD C/O PAIN 8/10, RELIEVED AFTER ONE DOSE IV FENTANYL. MEDICATIONS FAXED TO [facility]. INSTRUCTED TO FOLLOW-UP WITH PROVIDERS ORDERED. LEFT FLOOR AT 1410 WITH ALL BELONGINGS AND DISCHARGE PACKET, ESCORTED BY WHO ALSO PROVIDED TRANSPORTATION.
== END 2024-03-04 14:11 | disposition home health service (06) | DRG 388 ==
LOC: ER 16:04 → MEDS 03-01 00:29 → ERHOLD 03-01 00:29 → MEDS 03-01 10:38
PROVIDERS: Family Medicine; Physician Assistant; Student in an Organized Health Care Education/Training Program; ADMIT Internal Medicine
PROC: 0D9670Z Drainage of Stomach with Drainage Device, Via Natural or Artificial Opening (ICD-10-PCS; principal; 2024-03-01)
PROC: 5A09357 Assistance with Respiratory Ventilation, Less than 24 Consecutive Hours, Continuous Positive Airway Pressure (ICD-10-PCS; 2024-03-03)
DX: K91.31 Postprocedural partial intestinal obstruction (principal); I21.4 Non-ST elevation (NSTEMI) myocardial infarction; K65.1 Peritoneal abscess; F50.00 Anorexia nervosa, unspecified; E87.1 Hypo-osmolality and hyponatremia; I10 Essential (primary) hypertension; F43.10 Post-traumatic stress disorder, unspecified; D72.829 Elevated white blood cell count, unspecified; E87.6 Hypokalemia; D75.839 Thrombocytosis, unspecified; I71.43 Infrarenal abdominal aortic aneurysm, without rupture; I25.10 Atherosclerotic heart disease of native coronary artery without angina pectoris; K64.9 Unspecified hemorrhoids; K21.9 Gastro-esophageal reflux disease without esophagitis; D50.9 Iron deficiency anemia, unspecified; G47.33 Obstructive sleep apnea (adult) (pediatric); E66.9 Obesity, unspecified; E78.5 Hyperlipidemia, unspecified; Z90.49 Acquired absence of other specified parts of digestive tract; I25.2 Old myocardial infarction; Z79.899 Other long term (current) drug therapy; Z88.8 Allergy status to other drugs, medicaments and biological substances; Z86.73 Personal history of transient ischemic attack (TIA), and cerebral infarction without residual deficits; Z95.5 Presence of coronary angioplasty implant and graft; Z79.82 Long term (current) use of aspirin; Z79.02 Long term (current) use of antithrombotics/antiplatelets; F41.9 Anxiety disorder, unspecified; Z98.890 Other specified postprocedural states; Z87.891 Personal history of nicotine dependence; Z68.24 Body mass index [BMI] 24.0-24.9, adult
CPT/HCPCS: 0241U; 36415; 71045; 74177; 74250; 80048; 80053; 83605; 83735; 83880; 84100; 85025; 85610; 85730; 87040; 96365-59; 96375; 99285-25; A9270; C1751; J1170; J2405; J2543; J3010; J3480; J7030; Q9967